=== PATIENT | female | born 1950 | race Two or more races ===

== ENCOUNTER → 2016-12-26 | Outpatient (CLI) | payer MEDICARE, MEDICAID ==
[~2016-12-26] MED LIST: ASPI81CH43 PO; Atorvastatin Calcium PO; LOSA50TA26; MET25T PO
== END | disposition home or self-care (01) ==
LOC: Rad HDHVI 09:55
PROVIDERS: ATTEND Internal Medicine Cardiovascular Disease
DX: Z01.810 Encounter for preprocedural cardiovascular examination (principal); I08.3 Combined rheumatic disorders of mitral, aortic and tricuspid valves; I34.0 Nonrheumatic mitral (valve) insufficiency; I31.3 Pericardial effusion (noninflammatory); I25.10 Atherosclerotic heart disease of native coronary artery without angina pectoris; I10 Essential (primary) hypertension; E78.5 Hyperlipidemia, unspecified
CPT/HCPCS: 93306

== ENCOUNTER → 2017-01-15 | Outpatient (CLI) | payer MEDICARE, MEDICAID ==
[~2017-01-15] MED LIST changes: +ADENOSINE 62 MG in GIVE UN-DILUTED 0 ML IV ONE; +ADENOSINE 90 MG/30 ML INJ IV ONE
[2017-01-15 16:49] LABS: Basophils # (auto) 0 uL; Basophils % (auto) 0.5 % (0.0-2.0); Eosinophils # (auto) 0.1 uL; Eosinophils % (auto) 2.5 % (0.0-7.0); Hemoglobin 15.5 g/dL (12.2-16.2); Lymphocytes # (auto) 2.2 uL; Lymphocytes % (auto) 36.5 % (10.0-50.0); Mean Corpuscular Hemoglobin 32.8 pg (28.0-32.0); Mean Corpuscular Hgb Conc. 33.7 g/dL (32.0-36.0); Mean Corpuscular Volume 97.3 fL (80.0-100.0); Mean Platelet Volume 9.5 fL (7.4-10.4); Monocytes # (auto) 0.6 uL; Monocytes % (auto) 10.5 % (0.0-12.0); Platelet Count (auto) 198 10^3/uL (140-450); Red Cell Distribution Width 13.5 % (11.6-16.0)
[2017-01-15 17:29] LABS: Albumin 3.8 g/dL (3.4-5.0); BUN/Creatinine Ratio 26.9; Bilirubin, Direct 0.2 mg/dL (0-0.2); Bilirubin, Total 0.5 mg/dL (0.2-1.0); Calcium 8.9 mg/dL (8.5-10.1); Potassium 3.4 mmol/L (3.5-5.1); Total Protein 7.5 g/dL (6.4-8.2)
== END | disposition home or self-care (01) ==
LOC: Rad HDHVI 13:36
PROVIDERS: ATTEND Internal Medicine Cardiovascular Disease
DX: I10 Essential (primary) hypertension (principal); E78.00 Pure hypercholesterolemia, unspecified; K74.1 Hepatic sclerosis; E11.9 Type 2 diabetes mellitus without complications; E03.9 Hypothyroidism, unspecified; D64.9 Anemia, unspecified; E55.9 Vitamin D deficiency, unspecified
CPT/HCPCS: 78452; 80048; 80061; 80076; 82306; 83036; 84443; 93005; 96374; 96375; J0153

== ENCOUNTER → 2017-01-26 | Outpatient (CLI) | payer MEDICARE, MEDICAID ==
[~2017-01-26] MED LIST changes: -ADENOSINE 62 MG in GIVE UN-DILUTED 0 ML IV ONE; -ADENOSINE 90 MG/30 ML INJ IV ONE
== END | disposition home or self-care (01) ==
LOC: Rad HDHVI 08:47
PROVIDERS: ATTEND Internal Medicine Cardiovascular Disease
CPT/HCPCS: 71020

== ENCOUNTER → 2017-02-16 | Outpatient (CLI) | payer MEDICARE, MEDICAID ==
[~2017-02-16] VITALS: Ht 152.4 cm; Wt 72.6 kg
[~2017-02-16] MED LIST changes: +CLON0.1T PO; +GUAI1SOL3 PO; +HCTZ25T PO; +LISI-646 PO; +ROSU20TA14 PO
[2017-02-16 08:00] VITALS: BP 156/84
[2017-02-16 08:30] VITALS: BP 145/89
[2017-02-16 12:32] LABS: Basophils # (auto) 0 uL; Basophils % (auto) 0.5 % (0.0-2.0); Eosinophils # (auto) 0.1 uL; Eosinophils % (auto) 2.6 % (0.0-7.0); Hematocrit 46.8 % (36.0-46.0); Hemoglobin 15.9 g/dL (12.2-16.2); Lymphocytes # (auto) 1.7 uL; Lymphocytes % (auto) 29.8 % (10.0-50.0); Mean Corpuscular Hemoglobin 33.5 pg (28.0-32.0); Mean Corpuscular Volume 98.3 fL (80.0-100.0); Mean Platelet Volume 9.3 fL (7.4-10.4); Monocytes # (auto) 0.5 uL; Monocytes % (auto) 9.8 % (0.0-12.0); Neutrophils # (auto) 3.2 uL; Neutrophils % (auto) 57.3 % (37.0-80.0); Platelet Count (auto) 220 10^3/uL (140-450); Red Cell Distribution Width 13.4 % (11.6-16.0); White Blood Cell 5.6 10^3/uL (4.4-10.8)
[2017-02-16 12:42] LABS: INR 0.98 (0.9-1.15); Partial Thromboplastin Time 25.9 sec (22.64-33.71); Prothrombin Time 10.7 sec (9.37-12.3)
[2017-02-16 12:53] LABS: BUN/Creatinine Ratio 28.3; Calcium 9.2 mg/dL (8.5-10.1); Potassium 3.4 mmol/L (3.5-5.1)
== END | disposition home or self-care (01) ==
LOC: Rad HDHVI 07:42
PROVIDERS: ATTEND Internal Medicine Cardiovascular Disease
DX: I10 Essential (primary) hypertension (principal); D64.9 Anemia, unspecified; R79.1 Abnormal coagulation profile; Z01.812 Encounter for preprocedural laboratory examination
CPT/HCPCS: 36415; 71020; 80048; 85025; 85610; 85730; 93005; G0463

== ENCOUNTER → 2017-02-20 | Day surgery (SDC) | payer MEDICARE, MEDICAID ==
[~2017-02-20] MED LIST changes: +ANGIOMAX 250 MG VIAL IV ONE; +IOHEXOL 350 MG/ML 100ML IJ ONE; +LIDOCAINE 2%HCL (LOCAL ANESTH.) INJ 20ML MDV ONE; -LOSA50TA26; -MET25T PO; +MIDAZOLAM HCL 1MG/1ML-2 ML VIAL ONE; +SODIUM CHL 0.9% 0 ML ONE; +fentaNYL CITRATE 100 MCG/2 ML VL ONE
== END | disposition home or self-care (01) ==
LOC: CATH 09:49
PROVIDERS: ATTEND Internal Medicine Cardiovascular Disease
DX: R94.39 Abnormal result of other cardiovascular function study (principal); I10 Essential (primary) hypertension; E78.5 Hyperlipidemia, unspecified
CPT/HCPCS: 93458; C1760; C1894; J1644; J2250; J3010; J7030; Q9967; 99152

== ENCOUNTER → 2017-07-11 | Outpatient (CLI) | payer MEDICARE, MEDICAID ==
[~2017-07-11] MED LIST changes: -ANGIOMAX 250 MG VIAL IV ONE; -ASPI81CH43 PO; -Atorvastatin Calcium PO; -HCTZ25T PO; -IOHEXOL 350 MG/ML 100ML IJ ONE; -LIDOCAINE 2%HCL (LOCAL ANESTH.) INJ 20ML MDV ONE; -LISI-646 PO; -MIDAZOLAM HCL 1MG/1ML-2 ML VIAL ONE; -ROSU20TA14 PO; -SODIUM CHL 0.9% 0 ML ONE; -fentaNYL CITRATE 100 MCG/2 ML VL ONE
== END | disposition home or self-care (01) ==
LOC: Rad HDHVI 10:08
PROVIDERS: ATTEND Internal Medicine Cardiovascular Disease
DX: I10 Essential (primary) hypertension (principal); E78.5 Hyperlipidemia, unspecified
CPT/HCPCS: 93306

== ENCOUNTER → 2017-07-27 | Outpatient (CLI) | payer MEDICARE, MEDICAID ==
[~2017-07-27] VITALS: Ht 30.5 cm; Wt 0.5 kg
[~2017-07-27] MED LIST changes: +ADENOSINE 60 MG in GIVE UN-DILUTED 0 ML IV ONE; +ADENOSINE 90 MG/30 ML INJ IV ONE; +READI-CAT 2 (BARIUM SULF)(VANILLA SMOOTHIE) 450ML ONE
== END | disposition home or self-care (01) ==
LOC: Rad HDHVI 10:10
PROVIDERS: ATTEND Internal Medicine Cardiovascular Disease
DX: K57.30 Diverticulosis of large intestine without perforation or abscess without bleeding (principal); I70.0 Atherosclerosis of aorta; E78.00 Pure hypercholesterolemia, unspecified; I10 Essential (primary) hypertension
CPT/HCPCS: 74176; 78452; 93005; 96374; 96375; A9500; J0153

== ENCOUNTER → 2017-11-01 | Outpatient (CLI) | payer MEDICARE, MEDICAID ==
[~2017-11-01] MED LIST changes: -ADENOSINE 60 MG in GIVE UN-DILUTED 0 ML IV ONE; -ADENOSINE 90 MG/30 ML INJ IV ONE; +IOHEXOL 350 MG/ML 100ML IJ ONE; -READI-CAT 2 (BARIUM SULF)(VANILLA SMOOTHIE) 450ML ONE
[2017-11-01 13:05] VITALS: BP 128/81
[2017-11-01 13:45] VITALS: BP 135/80
== END | disposition home or self-care (01) ==
LOC: Rad HDHVI 12:49
PROVIDERS: ATTEND Internal Medicine Cardiovascular Disease
DX: I25.10 Atherosclerotic heart disease of native coronary artery without angina pectoris (principal); M54.2 Cervicalgia
CPT/HCPCS: 70491; 71260; 82565; 96374; G0463; Q9967

== ENCOUNTER → 2018-02-21 | Outpatient (CLI) | payer MEDICARE, MEDICAID ==
[~2018-02-21] MED LIST changes: +ASPirin 81 mg TAB ONE; +ASPirin 81 mg TAB PO ONE; -IOHEXOL 350 MG/ML 100ML IJ ONE; +cloNIDine HCL 0.1 MG TAB ONE; +cloNIDine HCL 0.1 MG TAB PO ONE
[2018-02-21 10:45] VITALS: BP 118/68
[2018-02-21 11:50] VITALS: BP 118/68
[2018-02-21 16:07] LABS: Basophils # (auto) 0 uL; Basophils % (auto) 0.5 % (0.0-2.0); Eosinophils # (auto) 0 uL; Eosinophils % (auto) 0.7 % (0.0-7.0); Hematocrit 43.9 % (36.0-46.0); Hemoglobin 14.9 g/dL (12.2-16.2); Lymphocytes # (auto) 1.3 uL; Lymphocytes % (auto) 23.7 % (10.0-50.0); Mean Corpuscular Hemoglobin 33.8 pg (28.0-32.0); Mean Corpuscular Volume 99.6 fL (80.0-100.0); Monocytes # (auto) 0.6 uL; Monocytes % (auto) 10.5 % (0.0-12.0); Neutrophils # (auto) 3.6 uL; Neutrophils % (auto) 64.6 % (37.0-80.0); Nucleated Red Blood Cells % 0.3 %; Platelet Count (auto) 162 10^3/uL (140-450); Red Blood Cells 4.41 10^6/uL (4.0-5.20); White Blood Cell 5.5 10^3/uL (4.4-10.8)
[2018-02-21 16:44] LABS: Albumin 3.3 g/dL (3.4-5.0); BUN/Creatinine Ratio 30.5; Bilirubin, Total 0.4 mg/dL (0.2-1.0); Calcium 8.6 mg/dL (8.5-10.1); Potassium 3.8 mmol/L (3.5-5.1); Total Protein 6.7 g/dL (6.4-8.2)
== END | disposition home or self-care (01) ==
LOC: CHF HDHVI 10:42
PROVIDERS: ATTEND Internal Medicine Cardiovascular Disease
DX: D64.9 Anemia, unspecified (principal); I10 Essential (primary) hypertension; E83.40 Disorders of magnesium metabolism, unspecified
CPT/HCPCS: 36415; 80053; 83735; 85025; 93005; G0463

== ENCOUNTER → 2018-12-23 | Outpatient (CLI) | payer MEDICARE, MEDICAID ==
[~2018-12-23] MED LIST changes: -ASPirin 81 mg TAB ONE; -ASPirin 81 mg TAB PO ONE
[2018-12-23 16:50] VITALS: BP 183/99
[2018-12-23 17:10] VITALS: BP 167/94
--- NOTE | 2018-12-23 17:10 | NUR ---
IN TO CLINIC FOR HTN. MEDICATED PER MD ORDER. BP MONITORED. GOOD RESPONSE WITHIN 30 MINUTES. DISCHARGED TO CARE OF SON WITHOUT DISTRESS. MEDICATION ADMINISTRATION CLONIDINE 0.2 MG PO 3818
== END | disposition home or self-care (01) ==
LOC: CHF HDHVI 16:38
PROVIDERS: ATTEND Internal Medicine Cardiovascular Disease
DX: I10 Essential (primary) hypertension (principal)
CPT/HCPCS: G0463

== ENCOUNTER → 2019-01-07 | Outpatient (CLI) | payer MEDICAID, MEDICARE ==
[~2019-01-07] MED LIST changes: -cloNIDine HCL 0.1 MG TAB ONE; -cloNIDine HCL 0.1 MG TAB PO ONE
== END | disposition home or self-care (01) ==
LOC: Rad HDHVI 15:06
PROVIDERS: ATTEND Internal Medicine
DX: I11.9 Hypertensive heart disease without heart failure (principal); R42 Dizziness and giddiness
CPT/HCPCS: 93306; 93880

== ENCOUNTER → 2019-01-21 | Outpatient (CLI) | payer MEDICARE ==
[~2019-01-21] VITALS: Ht 165.1 cm; Wt 75.3 kg
[~2019-01-21] MED LIST changes: +ADENOSINE 63 MG in GIVE UN-DILUTED 0 ML IV ONE; +ADENOSINE 90 MG/30 ML INJ IV ONE
[2019-01-21 15:57] LABS: Basophils # (auto) 0 uL; Basophils % (auto) 0.5 % (0.0-2.0); Eosinophils # (auto) 0 uL; Eosinophils % (auto) 0.8 % (0.0-7.0); Hemoglobin 16.6 g/dL (12.2-16.2); Lymphocytes # (auto) 1.9 uL; Lymphocytes % (auto) 35.8 % (10.0-50.0); Mean Corpuscular Hemoglobin 32.6 pg (28.0-32.0); Mean Corpuscular Hgb Conc. 33.9 g/dL (32.0-36.0); Mean Corpuscular Volume 96.3 fL (80.0-100.0); Monocytes # (auto) 0.6 uL; Monocytes % (auto) 11.5 % (0.0-12.0); Neutrophils # (auto) 2.7 uL; Neutrophils % (auto) 51.4 % (37.0-80.0); Nucleated Red Blood Cells % 1.7 %; Platelet Count (auto) 193 10^3/uL (140-450); Red Blood Cells 5.09 10^6/uL (4.0-5.20); Red Cell Distribution Width 12.9 % (11.8-14.3); White Blood Cell 5.2 10^3/uL (4.4-10.8)
[2019-01-21 16:11] LABS: Potassium 3.7 mmol/L (3.5-5.1)
[2019-01-21 16:12] LABS: Urine Blood 1+ /uL (Negative); Urine Specific Gravity 1.017 (1.001-1.035)
[2019-01-21 16:17] LABS: BUN/Creatinine Ratio 22.4; Bilirubin, Total 0.6 mg/dL (0.2-1.0); Calcium 9.2 mg/dL (8.5-10.1); Total Protein 7.7 g/dL (6.4-8.2)
[2019-01-21 16:26] LABS: Free T4 (Free Thyroxine) 1.07 ng/dL (0.89-1.76)
== END | disposition home or self-care (01) ==
LOC: Rad HDHVI 08:58
PROVIDERS: ATTEND Internal Medicine
DX: N39.0 Urinary tract infection, site not specified (principal); E03.9 Hypothyroidism, unspecified; E55.9 Vitamin D deficiency, unspecified; D51.9 Vitamin B12 deficiency anemia, unspecified; J32.9 Chronic sinusitis, unspecified; R63.8 Other symptoms and signs concerning food and fluid intake; R09.89 Other specified symptoms and signs involving the circulatory and respiratory systems; R53.1 Weakness; R42 Dizziness and giddiness; Z79.899 Other long term (current) drug therapy
CPT/HCPCS: 36415; 78452; 80053; 80061; 81003; 82306; 82607; 83036; 84439; 84443; 85025; 87086; 93005; 96374; 96375; A9500; J0153

== ENCOUNTER → 2020-05-24 | Outpatient (CLI) | payer MEDICARE, MEDICAID ==
[~2020-05-24] MED LIST changes: -ADENOSINE 63 MG in GIVE UN-DILUTED 0 ML IV ONE; -ADENOSINE 90 MG/30 ML INJ IV ONE; +AML5T PO; +ATOR40TA52 PO; +CHOL1TAB22 PO; -CLON0.1T PO; +CLON0.1T14 PO; -GUAI1SOL3 PO; +PANT40TA2 PO
[2020-05-24 12:24] LABS: Basophils # (auto) 0 10 ^3/uL (0-0.2); Basophils % (auto) 0.5 % (0.0-2.0); Eosinophils # (auto) 0 10 ^3/uL (0-0.8); Eosinophils % (auto) 0.7 % (0.0-7.0); Hematocrit 46.6 % (36.0-46.0); Hemoglobin 15.5 g/dL (12.2-16.2); Lymphocytes # (auto) 1.9 10 ^3/uL (0.4-5.4); Lymphocytes % (auto) 34.9 % (10.0-50.0); Mean Corpuscular Hemoglobin 31.8 pg (28.0-32.0); Mean Corpuscular Hgb Conc. 33.3 g/dL (32.0-36.0); Mean Corpuscular Volume 95.5 fL (80.0-100.0); Monocytes # (auto) 0.5 10 ^3/uL (0-1.3); Monocytes % (auto) 9.8 % (0.0-12.0); Neutrophils % (auto) 54.1 % (37.0-80.0); Platelet Count (auto) 214 10^3/uL (140-450); Red Blood Cells 4.89 10^6/uL (4.0-5.20); White Blood Cell 5.5 10^3/uL (4.4-10.8)
[2020-05-24 12:31] LABS: Urine Blood 1+ /uL (Negative); Urine Specific Gravity 1.015 (1.001-1.035)
[2020-05-24 12:45] LABS: Albumin 3.8 g/dL (3.4-5.0); Calcium 9.1 mg/dL (8.5-10.1); Potassium 3.7 mmol/L (3.5-5.1)
[2020-05-24 12:52] LABS: BUN/Creatinine Ratio 28.4; Bilirubin, Total 0.5 mg/dL (0.2-1.0); Total Protein 7.8 g/dL (6.4-8.2)
[2020-05-24 12:54] LABS: Free T4 (Free Thyroxine) 1.12 ng/dL (0.89-1.76)
== END | disposition home or self-care (01) ==
LOC: LAB 08:36
PROVIDERS: ATTEND Internal Medicine
DX: E03.9 Hypothyroidism, unspecified (principal); K90.9 Intestinal malabsorption, unspecified; N39.0 Urinary tract infection, site not specified; D51.9 Vitamin B12 deficiency anemia, unspecified; Z79.899 Other long term (current) drug therapy; Z00.00 Encounter for general adult medical examination without abnormal findings
CPT/HCPCS: 36415; 80053; 80061; 81003; 82306; 82607; 83036; 84439; 84443; 85025; 87086

== ENCOUNTER → 2020-06-10 | Outpatient (CLI) | payer MEDICARE, MEDICAID | END | disposition home or self-care (01) | LOC: Rad HDHVI 12:58 | PROVIDERS: ATTEND Internal Medicine | DX: E03.9 Hypothyroidism, unspecified (principal) ==

== ENCOUNTER → 2021-01-18 | Outpatient (CLI) | payer MEDICARE, MEDICAID ==
[2021-01-18 11:39] LABS: Urine Blood TRACE /uL (Negative)
[2021-01-18 11:55] LABS: Basophils # (auto) 0 10 ^3/uL (0-0.2); Basophils % (auto) 0.6 % (0.0-2.0); Eosinophils # (auto) 0.2 10 ^3/uL (0-0.8); Eosinophils % (auto) 2.4 % (0.0-7.0); Hematocrit 46.7 % (36.0-46.0); Hemoglobin 16.4 g/dL (12.2-16.2); Lymphocytes # (auto) 2.2 10 ^3/uL (0.4-5.4); Lymphocytes % (auto) 32.1 % (10.0-50.0); Mean Corpuscular Hemoglobin 33.6 pg (28.0-32.0); Mean Corpuscular Hgb Conc. 35.1 g/dL (32.0-36.0); Mean Corpuscular Volume 95.9 fL (80.0-100.0); Monocytes # (auto) 0.7 10 ^3/uL (0-1.3); Monocytes % (auto) 10.4 % (0.0-12.0); Neutrophils # (auto) 3.7 10 ^3/uL (1.6-8.6); Neutrophils % (auto) 54.5 % (37.0-80.0); Nucleated Red Blood Cells % 0.2 %; Platelet Count (auto) 187 10^3/uL (140-450); Red Blood Cells 4.87 10^6/uL (4.0-5.20); Red Cell Distribution Width 13.5 % (11.8-14.3); White Blood Cell 6.7 10^3/uL (4.4-10.8)
[2021-01-18 12:26] LABS: Albumin 3.8 g/dL (3.4-5.0); Calcium 9.1 mg/dL (8.5-10.1); Potassium 3.3 mmol/L (3.5-5.1)
[2021-01-18 12:27] LABS: Free T4 (Free Thyroxine) 1.23 ng/dL (0.89-1.76)
[2021-01-18 12:31] LABS: BUN/Creatinine Ratio 20.4; Bilirubin, Total 0.6 mg/dL (0.2-1.0); Total Protein 7.9 g/dL (6.4-8.2)
== END | disposition home or self-care (01) ==
LOC: LAB 08:06
PROVIDERS: ATTEND Internal Medicine
DX: D51.3 Other dietary vitamin B12 deficiency anemia (principal); I10 Essential (primary) hypertension; E11.9 Type 2 diabetes mellitus without complications; E55.9 Vitamin D deficiency, unspecified; D64.9 Anemia, unspecified; R00.2 Palpitations; R53.1 Weakness; R30.0 Dysuria
CPT/HCPCS: 36415; 80053; 80061; 81003; 82306; 82607; 83036; 84439; 84443; 85025

== ENCOUNTER → 2021-02-22 | Outpatient (CLI) | payer MEDICARE, MEDICAID ==
[~2021-02-22] VITALS: Ht 157.5 cm; Wt 72.1 kg
[~2021-02-22] MED LIST changes: +ADENOSINE 61 MG in GIVE UN-DILUTED 0 ML IV ONE; +ADENOSINE 90 MG/30 ML INJ IV ONE
== END | disposition home or self-care (01) ==
LOC: Rad HDHVI 09:08
PROVIDERS: ATTEND Internal Medicine
DX: I10 Essential (primary) hypertension (principal); I20.9 Angina pectoris, unspecified; E78.5 Hyperlipidemia, unspecified; R42 Dizziness and giddiness; R07.9 Chest pain, unspecified; Z82.49 Family history of ischemic heart disease and other diseases of the circulatory system
CPT/HCPCS: 78452; 93005; 96374; 96375; A9500; J0153

== ENCOUNTER → 2021-04-12 | Outpatient (CLI) | payer MEDICARE, MEDICAID ==
[~2021-04-12] MED LIST changes: -ADENOSINE 61 MG in GIVE UN-DILUTED 0 ML IV ONE; -ADENOSINE 90 MG/30 ML INJ IV ONE
[2021-04-12 10:23] VITALS: BP 143/84
[2021-04-12 10:37] VITALS: BP 133/82
[2021-04-12 15:35] LABS: BUN/Creatinine Ratio 29.6; Calcium 9.1 mg/dL (8.5-10.1); Potassium 3.7 mmol/L (3.5-5.1)
[2021-04-12 15:40] LABS: Basophils # (auto) 0.1 10 ^3/uL (0-0.2); Basophils % (auto) 0.7 % (0.0-2.0); Eosinophils # (auto) 0 10 ^3/uL (0-0.8); Eosinophils % (auto) 0.4 % (0.0-7.0); Hematocrit 46.8 % (36.0-46.0); Lymphocytes # (auto) 2.8 10 ^3/uL (0.4-5.4); Lymphocytes % (auto) 29.3 % (10.0-50.0); Mean Corpuscular Hgb Conc. 34.1 g/dL (32.0-36.0); Mean Corpuscular Volume 96.6 fL (80.0-100.0); Monocytes # (auto) 0.7 10 ^3/uL (0-1.3); Monocytes % (auto) 7.7 % (0.0-12.0); Neutrophils # (auto) 5.8 10 ^3/uL (1.6-8.6); Neutrophils % (auto) 61.9 % (37.0-80.0); Nucleated Red Blood Cells % 0.1 %; Red Blood Cells 4.85 10^6/uL (4.0-5.20); Red Cell Distribution Width 13.4 % (11.8-14.3); White Blood Cell 9.4 10^3/uL (4.4-10.8)
[2021-04-12 15:46] LABS: INR 0.98 (0.9-1.15); Partial Thromboplastin Time 25.2 sec (23.0-31.2)
== END | disposition home or self-care (01) ==
LOC: Rad HDHVI 10:02
PROVIDERS: ATTEND Internal Medicine
DX: Z01.818 Encounter for other preprocedural examination (principal); M19.011 Primary osteoarthritis, right shoulder; I70.0 Atherosclerosis of aorta; M77.8 Other enthesopathies, not elsewhere classified; I10 Essential (primary) hypertension; R07.9 Chest pain, unspecified; R42 Dizziness and giddiness; M25.511 Pain in right shoulder
CPT/HCPCS: 36415; 71046; 73030; 80048; 85025; 85610; 85730; 93005; G0463

== ENCOUNTER 2021-04-13 07:31 | Day surgery (SDC) | payer MEDICARE, MEDICAID ==
[~2021-04-13] VITALS: Ht 134.6 cm; Wt 73.0 kg
[~2021-04-13 07:31] MED LIST changes: -CHOL1TAB22 PO; -PANT40TA2 PO
[2021-04-13] MEDS ORDERED: ANGIOMAX 250 MG VIAL IV ONE (07:59)
[2021-04-13] MEDS ORDERED: VERAPAMIL 2.5MG/ML INJ 2ML VIAL IV ONE (07:59)
[2021-04-13] MEDS ORDERED: HEPARIN SODIUM (PORCINE) 5000 UNITS/ML 1ML VIAL ONE (07:59)
[2021-04-13] MEDS ORDERED: SODIUM CHL 0.9% 0 ML ONE (08:00)
[2021-04-13] MEDS ORDERED: fentaNYL CITRATE 100 MCG/2 ML VL ONE (08:00)
[2021-04-13] MEDS ORDERED: MIDAZOLAM HCL 1MG/1ML-2 ML VIAL ONE (08:00)
[2021-04-13] MEDS ORDERED: HYDROcodone-ACET 5/325MG TAB PO PRN (10:30)
[2021-04-13] MEDS ORDERED: ONDANSETRON HCL 4 MG/2 ML VIAL IV PRN (10:30)
[2021-04-13] MEDS ORDERED: ACETAMINOPHEN 500 MG TAB PO PRN (10:30)
== END 2021-04-13 12:05 | disposition home or self-care (01) ==
LOC: CATH 07:31
PROVIDERS: ATTEND Internal Medicine
DX: R94.39 Abnormal result of other cardiovascular function study (principal); I10 Essential (primary) hypertension; E78.5 Hyperlipidemia, unspecified; I73.9 Peripheral vascular disease, unspecified; E78.00 Pure hypercholesterolemia, unspecified; E66.01 Morbid (severe) obesity due to excess calories; Z88.8 Allergy status to other drugs, medicaments and biological substances; Z90.710 Acquired absence of both cervix and uterus; Z20.822 Contact with and (suspected) exposure to COVID-19; Z79.899 Other long term (current) drug therapy
CPT/HCPCS: 93458; C1887; C1894; J1644; J2250; J3010; U0003; 99152

== ENCOUNTER 2022-02-12 08:02 | Emergency (ER) | payer MEDICARE, MEDICAID ==
[~2022-02-12] VITALS: Ht 152.4 cm; Wt 75.7 kg
[2022-02-12 09:31] LABS: Urine Bacteria NONE SEEN /hpf (None Seen); Urine Blood Negative /uL (Negative); Urine Specific Gravity 1.014 (1.001-1.035); Urine WBC 3 /hpf (0 - 5)
[2022-02-12] MEDS ORDERED: KETOROLAC TROMETH 30 MG/ML 1ML VIAL IV ONE (10:45)
[2022-02-12] MEDS ORDERED: SODIUM CHLORIDE 0.9% 500 ML IVB ONE (10:45)
[2022-02-12 12:22] VITALS: BP 186/89
[2022-02-12 12:33] LABS: Basophils # (auto) 0 10 ^3/uL (0-0.2); Basophils % (auto) 0.6 % (0.0-2.0); Eosinophils # (auto) 0.1 10 ^3/uL (0-0.8); Eosinophils % (auto) 1.6 % (0.0-7.0); Hemoglobin 13.5 g/dL (12.2-16.2); Lymphocytes # (auto) 2.4 10 ^3/uL (0.4-5.4); Lymphocytes % (auto) 34.1 % (10.0-50.0); Mean Corpuscular Hemoglobin 33.2 pg (28.0-32.0); Mean Corpuscular Hgb Conc. 34.5 g/dL (32.0-36.0); Mean Corpuscular Volume 96.3 fL (80.0-100.0); Monocytes # (auto) 0.8 10 ^3/uL (0-1.3); Neutrophils # (auto) 3.7 10 ^3/uL (1.6-8.6); Neutrophils % (auto) 52.7 % (37.0-80.0); Nucleated Red Blood Cells % 0.1 %; Red Blood Cells 4.05 10^6/uL (4.0-5.20); Red Cell Distribution Width 13.2 % (11.8-14.3); White Blood Cell 6.9 10^3/uL (4.4-10.8)
[2022-02-12] MEDS ORDERED: MORPHINE SULFATE INJ 2 MG/ml SYRG IV PRN ×2 (12:45)
[2022-02-12] MEDS ORDERED: SODIUM CHLORIDE 0.9% 1,000 ML IV SCH (12:45)
[2022-02-12] MEDS ORDERED: NITROGLYCERIN 0.4 MG SL TAB SL PRN (12:45)
[2022-02-12] MEDS ORDERED: cefTRIAXone 1GM/50ML D5W 50 ML IV ONE (12:45)
[2022-02-12] MEDS ORDERED: ONDANSETRON HCL 4 MG/2 ML VIAL IV PRN (12:45)
[2022-02-12] MEDS ORDERED: FAMOTIDINE (10MG/ML) 2ML VL IV ONE (12:45)
[2022-02-12] MEDS ORDERED: hydrALAZINE HCL 20 MG/ML VL IV PRN (12:45)
[2022-02-12 12:56] LABS: Amylase 92 U/L (25-115); Lipase 142 U/L (73-393); Potassium 3.7 mmol/L (3.5-5.1)
[2022-02-12 13:02] LABS: BUN/Creatinine Ratio 35.7; Bilirubin, Total 0.3 mg/dL (0.2-1.0); Calcium 8.2 mg/dL (8.5-10.1); Total Protein 6.6 g/dL (6.4-8.2)
[2022-02-13] MEDS ORDERED: cefTRIAXone 1GM/50ML D5W 50 ML IV SCH (09:00)
[2022-02-13] MEDS ORDERED: FAMOTIDINE (10MG/ML) 2ML VL IV SCH (10:00)
== END 2022-02-12 13:44 | disposition home or self-care (01) ==
LOC: ER 08:02 → OVERFLOW 12:48 → UNDOADMIN 12:48 → UNDODISIN 13:42 → OVERFLOW 13:44
DX: R10.9 Unspecified abdominal pain (principal); I10 Essential (primary) hypertension; Z86.73 Personal history of transient ischemic attack (TIA), and cerebral infarction without residual deficits; Z88.8 Allergy status to other drugs, medicaments and biological substances
CPT/HCPCS: 36415; 74176; 80053; 81001; 82150; 83690; 85025; 93005; 96374; 99285; J1885; J7040; 96361; G0378

== ENCOUNTER → 2022-03-28 | Outpatient (CLI) | payer MEDICARE, MEDICAID | END | disposition home or self-care (01) | LOC: LAB 11:22 | PROVIDERS: ATTEND Internal Medicine | DX: R94.4 Abnormal results of kidney function studies (principal) | CPT/HCPCS: 36415; 82565; 84520 ==

== ENCOUNTER → 2022-03-31 | Outpatient (CLI) | payer MEDICARE, MEDICAID ==
[~2022-03-31] MED LIST changes: +IOHEXOL 350 MG/ML 100ML IJ ONE
[2022-03-31 09:04] VITALS: BP 159/87
[2022-03-31 09:28] VITALS: BP 167/77
== END | disposition home or self-care (01) ==
LOC: Rad HDHVI 08:47
PROVIDERS: ATTEND Internal Medicine
DX: I51.7 Cardiomegaly (principal); N32.89 Other specified disorders of bladder; I70.0 Atherosclerosis of aorta; R07.89 Other chest pain
CPT/HCPCS: 71260; 74177; G0463; Q9967

== ENCOUNTER → 2022-05-09 | Outpatient (CLI) | payer MEDICARE, MEDICAID ==
[~2022-05-09] MED LIST changes: -IOHEXOL 350 MG/ML 100ML IJ ONE
[2022-05-09 16:29] LABS: Urine Blood Negative /uL (Negative)
[2022-05-09 16:43] LABS: Basophils # (auto) 0 10 ^3/uL (0-0.2); Basophils % (auto) 0.3 % (0.0-2.0); Eosinophils # (auto) 0.1 10 ^3/uL (0-0.8); Eosinophils % (auto) 1.3 % (0.0-7.0); Hematocrit 44.3 % (36.0-46.0); Hemoglobin 14.2 g/dL (12.2-16.2); Lymphocytes # (auto) 2.5 10 ^3/uL (0.4-5.4); Lymphocytes % (auto) 37.9 % (10.0-50.0); Mean Corpuscular Hemoglobin 31.2 pg (28.0-32.0); Mean Corpuscular Volume 97.3 fL (80.0-100.0); Monocytes # (auto) 0.6 10 ^3/uL (0-1.3); Monocytes % (auto) 9.1 % (0.0-12.0); Neutrophils # (auto) 3.4 10 ^3/uL (1.6-8.6); Neutrophils % (auto) 51.4 % (37.0-80.0); Nucleated Red Blood Cells % 0.1 %; Red Blood Cells 4.55 10^6/uL (4.0-5.20); Red Cell Distribution Width 13.4 % (11.8-14.3); White Blood Cell 6.6 10^3/uL (4.4-10.8)
[2022-05-09 16:54] LABS: Albumin 3.4 g/dL (3.4-5.0); Calcium 9.8 mg/dL (8.5-10.1); Potassium 3.8 mmol/L (3.5-5.1)
[2022-05-09 17:00] LABS: Bilirubin, Total 0.4 mg/dL (0.2-1.0); Total Protein 7.8 g/dL (6.4-8.2)
[2022-05-09 17:05] LABS: Free T4 (Free Thyroxine) 1.25 ng/dL (0.89-1.76)
== END | disposition home or self-care (01) ==
LOC: LAB 11:21
PROVIDERS: ATTEND Internal Medicine
DX: D64.9 Anemia, unspecified (principal); E11.9 Type 2 diabetes mellitus without complications; E55.9 Vitamin D deficiency, unspecified; I10 Essential (primary) hypertension; R00.2 Palpitations; R53.1 Weakness; R30.0 Dysuria; D51.3 Other dietary vitamin B12 deficiency anemia
CPT/HCPCS: 36415; 80053; 80061; 81003; 82607; 83036; 84439; 84443; 85025; 87086

== ENCOUNTER → 2022-05-11 | Outpatient (CLI) | payer MEDICARE, MEDICAID | END | disposition home or self-care (01) | LOC: Rad HDHVI 14:09 | PROVIDERS: ATTEND Internal Medicine | DX: I37.1 Nonrheumatic pulmonary valve insufficiency (principal); R07.9 Chest pain, unspecified; E78.00 Pure hypercholesterolemia, unspecified | CPT/HCPCS: 93306 ==

== ENCOUNTER → 2022-11-08 | Outpatient (CLI) | payer MEDICARE, MEDICAID ==
[~2022-11-08] MED LIST changes: +PIPERACILLIN-TAZO 4.5GM 100 ML IV ONE; +READI-CAT 2 (BARIUM SULF)(VANILLA SMOOTHIE) 450ML ONE
[2022-11-08 10:00] VITALS: BP 168/100
[2022-11-08 12:40] VITALS: BP 161/90
== END | disposition home or self-care (01) ==
LOC: Rad HDHVI 10:00
PROVIDERS: ATTEND Internal Medicine Cardiovascular Disease
DX: J06.9 Acute upper respiratory infection, unspecified (principal); R10.0 Acute abdomen; I10 Essential (primary) hypertension; E78.00 Pure hypercholesterolemia, unspecified; E11.9 Type 2 diabetes mellitus without complications; Z86.73 Personal history of transient ischemic attack (TIA), and cerebral infarction without residual deficits; Z88.8 Allergy status to other drugs, medicaments and biological substances
CPT/HCPCS: 74176; 96365; 96366; G0463; J2543

== ENCOUNTER 2023-01-15 19:30 | Inpatient (IN) | payer MEDICARE, MEDICAID ==
[~2023-01-15] VITALS: Ht 152.4 cm; Wt 79.8 kg
[~2023-01-15 19:30] MED LIST changes: -PIPERACILLIN-TAZO 4.5GM 100 ML IV ONE; -READI-CAT 2 (BARIUM SULF)(VANILLA SMOOTHIE) 450ML ONE
[2023-01-15 21:52] LABS: Basophils # (auto) 0 10 ^3/uL (0-0.2); Basophils % (auto) 0.4 % (0.0-2.0); Eosinophils # (auto) 0.1 10 ^3/uL (0-0.8); Eosinophils % (auto) 1.3 % (0.0-7.0); Hematocrit 39.9 % (36.0-46.0); Hemoglobin 13.6 g/dL (12.2-16.2); Lymphocytes # (auto) 2.9 10 ^3/uL (0.4-5.4); Lymphocytes % (auto) 35.3 % (10.0-50.0); Mean Corpuscular Hgb Conc. 34.2 g/dL (32.0-36.0); Mean Corpuscular Volume 87.8 fL (80.0-100.0); Monocytes # (auto) 1.3 10 ^3/uL (0-1.3); Neutrophils # (auto) 3.8 10 ^3/uL (1.6-8.6); Nucleated Red Blood Cells % 0.2 %; Red Blood Cells 4.54 10^6/uL (4.0-5.20); Red Cell Distribution Width 14.3 % (11.8-14.3); White Blood Cell 8.2 10^3/uL (4.4-10.8)
[2023-01-15 22:15] LABS: Albumin 3.3 g/dL (3.4-5.0); BUN/Creatinine Ratio 18.2 (10.0-20.0); Calcium 8.9 mg/dL (8.5-10.1); Potassium 3.8 mmol/L (3.5-5.1)
[2023-01-15 22:17] LABS: Bilirubin, Total 0.2 mg/dL (0.2-1.0); Total Protein 7.4 g/dL (6.4-8.2)
[2023-01-15] MEDS ORDERED: IOHEXOL 350 MG/ML 100ML IJ ONE (23:12)
[2023-01-15] MEDS ORDERED: ASPirin 325 MG TAB PO ONE (23:15)
[2023-01-16 00:22] LABS: Urine WBC None Seen /hpf (0 - 5)
[2023-01-16 00:44] LABS: Urine Amorphous Crystal MANY /hpf (None Seen); Urine Bacteria NONE SEEN /hpf (None Seen); Urine Blood Negative /uL (Negative); Urine Mucus FEW (None Seen); Urine Specific Gravity 1.028 (1.001-1.035)
[2023-01-16] MEDS ORDERED: ONDANSETRON HCL 4 MG/2 ML VIAL IV PRN (07:15)
[2023-01-16] MEDS ORDERED: MORPHINE SULFATE INJ 2 MG/ml SYRG IV PRN (07:15)
[2023-01-16] MEDS ORDERED: NITROGLYCERIN 0.4 MG SL TAB SL PRN (07:15)
[2023-01-16] MEDS: ASPirin 81 mg TAB PO SCH (09:32)
[2023-01-16] MEDS: ENOXAPARIN SOD 40 MG/0.4 ML SYRINGE SC SCH (09:32)
[2023-01-16] MEDS: PANTOPRAZOLE 40 MG TAB PO SCH (09:32)
[2023-01-16] MEDS: METOPROLOL SUCCINATE XL 50 MG TAB PO SCH (09:33)
[2023-01-16] MEDS: cloNIDine HCL 0.1 MG TAB PO SCH ×2 (09:33→21:50)
[2023-01-16 21:39] VITALS: BP 153/78
[2023-01-16] MEDS ORDERED: HYOS0.1293 PO (21:42)
[2023-01-16] MEDS ORDERED: METO-289 PO (21:42)
[2023-01-16] MEDS ORDERED: PANT40T PO (21:42)
[2023-01-16] MEDS: ACETAMINOPHEN 325 MG TAB PO PRN (21:50)
[2023-01-16] MEDS: ATORVASTATIN 20 MG TAB PO SCH (21:50)
[2023-01-17] VITALS (7 sets, daily range): BP systolic 121–144; BP diastolic 62–77
[2023-01-17 06:44] LABS: BUN/Creatinine Ratio 18.1 (10.0-20.0); Calcium 8.8 mg/dL (8.5-10.1); Potassium 3.5 mmol/L (3.5-5.1)
[2023-01-17] MEDS: cloNIDine HCL 0.1 MG TAB PO SCH ×2 (09:41→21:09)
[2023-01-17] MEDS: PANTOPRAZOLE 40 MG TAB PO SCH (09:41)
[2023-01-17] MEDS: ASPirin 81 mg TAB PO SCH (09:41)
[2023-01-17] MEDS: ENOXAPARIN SOD 40 MG/0.4 ML SYRINGE SC SCH (09:41)
[2023-01-17] MEDS: METOPROLOL SUCCINATE XL 50 MG TAB PO SCH (09:41)
[2023-01-17] MEDS: ACETAMINOPHEN 325 MG TAB PO PRN ×2 (09:42→17:10)
[2023-01-17] MEDS: ATORVASTATIN 20 MG TAB PO SCH (21:09)
[2023-01-18 05:00] VITALS: BP 135/74
[2023-01-18 09:00] VITALS: BP 137/70
[2023-01-18] MEDS ORDERED: ADENOSINE 67 MG in GIVE UN-DILUTED 0 ML IV ONE (09:15)
[2023-01-18] MEDS: ASPirin 81 mg TAB PO SCH (11:13)
[2023-01-18] MEDS: cloNIDine HCL 0.1 MG TAB PO SCH (11:14)
[2023-01-18] MEDS: PANTOPRAZOLE 40 MG TAB PO SCH (11:15)
[2023-01-18] MEDS: ENOXAPARIN SOD 40 MG/0.4 ML SYRINGE SC SCH (11:16)
[2023-01-18] MEDS: METOPROLOL SUCCINATE XL 50 MG TAB PO SCH (11:16)
[2023-01-18 12:45] VITALS: BP 135/74
== END 2023-01-18 14:26 | disposition home or self-care (01) | DRG 313 ==
LOC: ER 19:30 → TELE 01-16 07:10 → TELE-WESTW 01-16 20:40
PROVIDERS: ADMIT Nurse Practitioner; ATTEND Internal Medicine
DX: R07.89 Other chest pain (principal); E44.0 Moderate protein-calorie malnutrition; R42 Dizziness and giddiness; E78.5 Hyperlipidemia, unspecified; I25.10 Atherosclerotic heart disease of native coronary artery without angina pectoris; I10 Essential (primary) hypertension; Z68.34 Body mass index [BMI] 34.0-34.9, adult; Z88.8 Allergy status to other drugs, medicaments and biological substances
CPT/HCPCS: 36415; 70450; 71045; 71260; 74177; 78452; 80048; 80053; 81001; 83880; 84484; 85025; 93005; 93017; G0378; J0153; J2405

== ENCOUNTER → 2023-01-29 | Outpatient (CLI) | payer MEDICARE, MEDICAID ==
[~2023-01-29] MED LIST changes: +HYOS0.1293 PO; +METO-289 PO; +PANT40T PO; +READI-CAT 2 (BARIUM SULF)(VANILLA SMOOTHIE) 450ML ONE
== END | disposition home or self-care (01) ==
LOC: Rad HDHVI 15:29
PROVIDERS: ATTEND Internal Medicine Cardiovascular Disease
DX: M48.061 Spinal stenosis, lumbar region without neurogenic claudication (principal); K57.30 Diverticulosis of large intestine without perforation or abscess without bleeding; M47.816 Spondylosis without myelopathy or radiculopathy, lumbar region; K76.0 Fatty (change of) liver, not elsewhere classified; K75.3 Granulomatous hepatitis, not elsewhere classified; N30.80 Other cystitis without hematuria; I25.10 Atherosclerotic heart disease of native coronary artery without angina pectoris; I70.0 Atherosclerosis of aorta; R10.9 Unspecified abdominal pain
CPT/HCPCS: 72100; 74176

== ENCOUNTER → 2023-02-01 | Outpatient (CLI) | payer MEDICARE, MEDICAID ==
[~2023-02-01] MED LIST changes: -READI-CAT 2 (BARIUM SULF)(VANILLA SMOOTHIE) 450ML ONE
== END | disposition home or self-care (01) ==
LOC: Rad HDHVI 14:59
PROVIDERS: ATTEND Internal Medicine Cardiovascular Disease
DX: I35.1 Nonrheumatic aortic (valve) insufficiency (principal); I11.9 Hypertensive heart disease without heart failure; R06.02 Shortness of breath
CPT/HCPCS: 93306

== ENCOUNTER → 2023-02-19 | Outpatient (CLI) | payer MEDICARE, MEDICAID ==
[~2023-02-19] VITALS: Ht 157.5 cm; Wt 74.8 kg
[~2023-02-19] MED LIST changes: +ADENOSINE 63 MG in GIVE UN-DILUTED 0 ML IV ONE; +ADENOSINE 90 MG/30 ML INJ IV ONE
== END | disposition home or self-care (01) ==
LOC: Rad HDHVI 13:09
PROVIDERS: ATTEND Internal Medicine Cardiovascular Disease
DX: I25.10 Atherosclerotic heart disease of native coronary artery without angina pectoris (principal); R07.9 Chest pain, unspecified; I10 Essential (primary) hypertension; E78.5 Hyperlipidemia, unspecified
CPT/HCPCS: 78452; 93005; 96374; 96375; A9500; J0153

== ENCOUNTER → 2023-04-09 | Outpatient (CLI) | payer MEDICARE, MEDICAID ==
[~2023-04-09] MED LIST changes: -ADENOSINE 63 MG in GIVE UN-DILUTED 0 ML IV ONE; -ADENOSINE 90 MG/30 ML INJ IV ONE; -AML5T PO; -ATOR40TA52 PO; -HYOS0.1293 PO; +LOSA100T58 PO
[2023-04-09 13:58] VITALS: BP 138/60
[2023-04-09 14:10] VITALS: BP 118/56
== END | disposition home or self-care (01) ==
LOC: CHF HDHVI 13:50
PROVIDERS: ATTEND Internal Medicine Cardiovascular Disease
DX: M79.601 Pain in right arm (principal); R07.9 Chest pain, unspecified; R06.02 Shortness of breath
CPT/HCPCS: G0463

== ENCOUNTER 2023-05-09 16:23 | Emergency (ER) | payer MEDICARE, MEDICAID ==
[~2023-05-09] VITALS: Ht 152.4 cm; Wt 77.8 kg
[2023-05-09] MEDS ORDERED: LIDOCAINE 1% HCL (LOCAL ANESTH.) INJ 20ML MDV IJ ONE (17:00)
[2023-05-09 17:19] VITALS: O2SAT 98
[2023-05-09] MEDS ORDERED: CEPH500C PO (17:26)
[2023-05-09] MEDS ORDERED: ACET-1080 PO (17:26)
[2023-05-09 17:39] VITALS: BP 150/86; PULSE 80; RESP 18; O2SAT 98
== END 2023-05-09 17:40 | disposition home or self-care (01) ==
LOC: ER 16:23
DX: S61.512A Laceration without foreign body of left wrist, initial encounter (principal); I25.10 Atherosclerotic heart disease of native coronary artery without angina pectoris; I10 Essential (primary) hypertension; E78.5 Hyperlipidemia, unspecified; Z88.8 Allergy status to other drugs, medicaments and biological substances; Z79.899 Other long term (current) drug therapy; W25.XXXA Contact with sharp glass, initial encounter; Y93.89 Activity, other specified; Y92.89 Other specified places as the place of occurrence of the external cause; Y99.8 Other external cause status
CPT/HCPCS: 12002; 99283; J2001

== ENCOUNTER → 2023-05-25 | Outpatient (CLI) | payer MEDICARE, MEDICAID ==
[~2023-05-25] MED LIST changes: +ACET-1080 PO; +BACITRACIN TOP OINT 1 UD PKG TOP ONE; +CEPH500C PO
[2023-05-25 15:50] VITALS: BP 131/65; PULSE 69; RESP 16; O2SAT 97
[2023-05-25 16:04] VITALS: BP 124/62; PULSE 66; RESP 16; O2SAT 97
== END | disposition home or self-care (01) ==
LOC: CHF HDHVI 15:41
PROVIDERS: ATTEND Internal Medicine Cardiovascular Disease
DX: Z48.02 Encounter for removal of sutures (principal)
CPT/HCPCS: G0463

== ENCOUNTER 2023-07-20 10:53 | Inpatient (IN) | payer MEDICARE, MEDICAID ==
[~2023-07-20] VITALS: Ht 152.4 cm; Wt 79.0 kg
[~2023-07-20 10:53] MED LIST changes: -BACITRACIN TOP OINT 1 UD PKG TOP ONE
[2023-07-20] MEDS ORDERED: ASPirin 81 mg TAB PO ONE (11:15)
[2023-07-20 11:17] LABS: Basophils # (auto) 0 10 ^3/uL (0-0.2); Basophils % (auto) 0.7 % (0.0-2.0); Eosinophils # (auto) 0.1 10 ^3/uL (0-0.8); Eosinophils % (auto) 1.1 % (0.0-7.0); Hematocrit 43.2 % (36.0-46.0); Hemoglobin 14.2 g/dL (12.2-16.2); Lymphocytes # (auto) 2.3 10 ^3/uL (0.4-5.4); Lymphocytes % (auto) 30.4 % (10.0-50.0); Mean Corpuscular Hemoglobin 28.7 pg (28.0-32.0); Mean Corpuscular Hgb Conc. 32.9 g/dL (32.0-36.0); Mean Corpuscular Volume 87.2 fL (80.0-100.0); Monocytes # (auto) 0.9 10 ^3/uL (0-1.3); Neutrophils # (auto) 4.1 10 ^3/uL (1.6-8.6); Neutrophils % (auto) 55.8 % (37.0-80.0); Nucleated Red Blood Cells % 0.2 %; Red Blood Cells 4.95 10^6/uL (4.0-5.20); Red Cell Distribution Width 16.2 % (11.8-14.3); White Blood Cell 7.4 10^3/uL (4.4-10.8)
[2023-07-20 11:40] LABS: Alanine Aminotransferase 221 U/L (7-40); Albumin 4.2 g/dL (3.2-4.8); Alkaline Phosphatase 101 U/L (46-116); Anion Gap 7 (5-15); Aspartate Aminotransferase 122 U/L (13-40); BUN/Creatinine Ratio 20.3 (10.0-20.0); Bilirubin, Total 0.5 mg/dL (0.2-1.0); Blood Urea Nitrogen 15 mg/dL (9-23); Calcium 9.2 mg/dL (8.7-10.4); Carbon Dioxide 24 mmol/L (20-30); Chloride 106 mmol/L (98-107); Glucose 92 mg/dL (74-106); INR 1.05 (0.9-1.15); Partial Thromboplastin Time 24.8 SEC (24.5-34.5); Potassium 4.3 mmol/L (3.5-5.1); Sodium 137 mmol/L (136-145); Total Protein 7.3 g/dL (5.7-8.2)
[2023-07-20] MEDS ORDERED: MORPHINE SULFATE INJ 2 MG/ml SYRG IV PRN (14:00)
[2023-07-20] MEDS ORDERED: NITROGLYCERIN 0.4 MG SL TAB SL PRN (14:00)
[2023-07-20 14:35] LABS: Folate (Folic Acid) 18.33 ng/mL (>5.38)
[2023-07-20] MEDS ORDERED: ACETAMINOPHEN 325 MG TAB PO PRN (16:15)
[2023-07-20] MEDS ORDERED: hydrALAZINE HCL 20 MG/ML VL IV PRN (17:30)
[2023-07-20] MEDS ORDERED: ONDANSETRON HCL 4 MG/2 ML VIAL IV PRN (19:45)
[2023-07-20 21:27] LABS: COVID19 ANTIGEN SOFIA FIA NEGATIVE (NEGATIVE)
[2023-07-20] MEDS: LOSARTAN POTASSIUM 50 MG TAB PO SCH (22:43)
[2023-07-20] MEDS: ENOXAPARIN SOD 40 MG/0.4 ML SYRINGE SC SCH (22:45)
[2023-07-21] VITALS (8 sets, daily range): BP systolic 110–147; BP diastolic 47–76; PULSE 55–79; RESP 12–20; TEMP 97.4–98.6; O2SAT 93–96
[2023-07-21] MEDS: SODIUM CHLOR 0.9% PF (SALINE LOCK) 10ML VIAL/SYR IV SCH ×4 (01:17→21:05)
[2023-07-21] MEDS: cloNIDine HCL 0.1 MG TAB PO SCH ×3 (01:17→21:04)
[2023-07-21 02:19] LABS: Urine Bacteria NONE SEEN /hpf (None Seen); Urine Blood Negative /uL (Negative); Urine Clarity Clear (Clear); Urine Protein, UAD Negative (Negative); Urine Specific Gravity 1.005 (1.001-1.035); Urine Urobilinogen Normal (Negative); Urine WBC 4 /hpf (0 - 5)
[2023-07-21 03:11] LABS: Urine Color Straw (Yellow)
[2023-07-21 03:41] LABS: Rapid Influenza A Negative (Negative); Rapid Influenza B Negative (Negative)
[2023-07-21 06:32] LABS: Basophils # (auto) 0 10 ^3/uL (0-0.2); Basophils % (auto) 0.6 % (0.0-2.0); Eosinophils # (auto) 0.1 10 ^3/uL (0-0.8); Eosinophils % (auto) 0.7 % (0.0-7.0); Hematocrit 41.7 % (36.0-46.0); Hemoglobin 13.6 g/dL (12.2-16.2); Lymphocytes # (auto) 2.6 10 ^3/uL (0.4-5.4); Lymphocytes % (auto) 33.1 % (10.0-50.0); Mean Corpuscular Hemoglobin 28.7 pg (28.0-32.0); Mean Corpuscular Hgb Conc. 32.6 g/dL (32.0-36.0); Monocytes # (auto) 0.8 10 ^3/uL (0-1.3); Monocytes % (auto) 10.1 % (0.0-12.0); Neutrophils # (auto) 4.3 10 ^3/uL (1.6-8.6); Neutrophils % (auto) 55.5 % (37.0-80.0); Nucleated Red Blood Cells % 0.1 %; Red Blood Cells 4.74 10^6/uL (4.0-5.20); Red Cell Distribution Width 16.4 % (11.8-14.3); White Blood Cell 7.8 10^3/uL (4.4-10.8)
[2023-07-21 07:01] LABS: Alanine Aminotransferase 193 U/L (7-40); Albumin 3.7 g/dL (3.2-4.8); Alkaline Phosphatase 80 U/L (46-116); Anion Gap 9 (5-15); Aspartate Aminotransferase 111 U/L (13-40); BUN/Creatinine Ratio 21.5 (10.0-20.0); Blood Urea Nitrogen 17 mg/dL (9-23); Carbon Dioxide 24 mmol/L (20-30); Chloride 106 mmol/L (98-107); Cholesterol 209 mg/dL (< 200); Glucose 97 mg/dL (74-106); HDL Cholesterol 37 mg/dL (40-59); LDL Cholesterol 154 mg/dL (< 100); Potassium 3.9 mmol/L (3.5-5.1); Sodium 139 mmol/L (136-145); Triglycerides 150 mg/dL (< 150)
[2023-07-21 07:02] LABS: Bilirubin, Total 0.5 mg/dL (0.2-1.0); Total Protein 6.7 g/dL (5.7-8.2)
[2023-07-21 07:13] LABS: Magnesium 2.1 mg/dL (1.6-2.6)
[2023-07-21] MEDS: ENOXAPARIN SOD 40 MG/0.4 ML SYRINGE SC SCH (08:43)
[2023-07-21] MEDS: LOSARTAN POTASSIUM 50 MG TAB PO SCH (08:43)
[2023-07-21] MEDS: ASPirin 81 mg TAB PO SCH (08:43)
[2023-07-21] MEDS: METOPROLOL SUCCINATE XL 50 MG TAB PO SCH (08:44)
[2023-07-21] MEDS: PANTOPRAZOLE 40 MG TAB PO SCH (08:44)
[2023-07-21] MEDS ORDERED: LOSARTAN POTASSIUM 50 MG TAB PO SCH (10:00)
[2023-07-21] MEDS ORDERED: ERTAPENEM SOD INJ 1 GM in SODIUM CHL 0.9% 50 ML IV ONE (12:30)
[2023-07-21] MEDS: ATORVASTATIN 20 MG TAB PO SCH (21:04)
[2023-07-22] VITALS (7 sets, daily range): BP systolic 113–158; BP diastolic 43–78; PULSE 60–65; RESP 16–20; TEMP 97.3–98.7; O2SAT 92–96
[2023-07-22 05:49] LABS: Basophils # (auto) 0 10 ^3/uL (0-0.2); Basophils % (auto) 0.7 % (0.0-2.0); Eosinophils # (auto) 0.1 10 ^3/uL (0-0.8); Eosinophils % (auto) 1.3 % (0.0-7.0); Hematocrit 41.8 % (36.0-46.0); Hemoglobin 13.6 g/dL (12.2-16.2); Lymphocytes # (auto) 2.4 10 ^3/uL (0.4-5.4); Lymphocytes % (auto) 44.7 % (10.0-50.0); Mean Corpuscular Hemoglobin 28.9 pg (28.0-32.0); Mean Corpuscular Hgb Conc. 32.5 g/dL (32.0-36.0); Mean Corpuscular Volume 88.9 fL (80.0-100.0); Monocytes # (auto) 0.7 10 ^3/uL (0-1.3); Monocytes % (auto) 12.8 % (0.0-12.0); Neutrophils # (auto) 2.2 10 ^3/uL (1.6-8.6); Neutrophils % (auto) 40.5 % (37.0-80.0); Nucleated Red Blood Cells % 0.1 %; Red Blood Cells 4.71 10^6/uL (4.0-5.20); Red Cell Distribution Width 16.1 % (11.8-14.3); White Blood Cell 5.5 10^3/uL (4.4-10.8)
[2023-07-22] MEDS: SODIUM CHLOR 0.9% PF (SALINE LOCK) 10ML VIAL/SYR IV SCH ×3 (06:00→22:00)
[2023-07-22 06:03] LABS: Alanine Aminotransferase 201 U/L (7-40); Albumin 3.8 g/dL (3.2-4.8); Alkaline Phosphatase 86 U/L (46-116); Anion Gap 7 (5-15); Aspartate Aminotransferase 125 U/L (13-40); BUN/Creatinine Ratio 25.9 (10.0-20.0); Blood Urea Nitrogen 21 mg/dL (9-23); Calcium 9.2 mg/dL (8.7-10.4); Carbon Dioxide 24 mmol/L (20-30); Chloride 107 mmol/L (98-107); Glucose 99 mg/dL (74-106); Potassium 4.1 mmol/L (3.5-5.1); Sodium 138 mmol/L (136-145)
[2023-07-22 06:04] LABS: Bilirubin, Total 0.4 mg/dL (0.2-1.0); Total Protein 6.8 g/dL (5.7-8.2)
[2023-07-22] MEDS: ERTAPENEM SOD INJ 1 GM in SODIUM CHL 0.9% 50 ML IV SCH (10:17)
[2023-07-22] MEDS: PANTOPRAZOLE 40 MG TAB PO SCH (10:17)
[2023-07-22] MEDS: ASPirin 81 mg TAB PO SCH (10:18)
[2023-07-22] MEDS: cloNIDine HCL 0.1 MG TAB PO SCH ×2 (10:18→21:31)
[2023-07-22] MEDS: LOSARTAN POTASSIUM 50 MG TAB PO SCH (10:24)
[2023-07-22] MEDS: ENOXAPARIN SOD 40 MG/0.4 ML SYRINGE SC SCH (10:25)
[2023-07-22] MEDS: METOPROLOL SUCCINATE XL 50 MG TAB PO SCH (10:25)
[2023-07-22] MEDS: ATORVASTATIN 20 MG TAB PO SCH (21:28)
[2023-07-23] MEDS: SODIUM CHLOR 0.9% PF (SALINE LOCK) 10ML VIAL/SYR IV SCH ×2 (05:15→15:26)
[2023-07-23 05:16] VITALS: BP 117/60; PULSE 61; RESP 18; TEMP 98.2; O2SAT 93
[2023-07-23 06:30] LABS: Alanine Aminotransferase 179 U/L (7-40); Alkaline Phosphatase 86 U/L (46-116); Anion Gap 8 (5-15); Calcium 9.1 mg/dL (8.7-10.4); Carbon Dioxide 25 mmol/L (20-30); Chloride 107 mmol/L (98-107); Potassium 4.1 mmol/L (3.5-5.1); Sodium 140 mmol/L (136-145)
[2023-07-23 06:31] LABS: Aspartate Aminotransferase 99 U/L (13-40); BUN/Creatinine Ratio 20.7 (10.0-20.0); Blood Urea Nitrogen 17 mg/dL (9-23); Glucose 102 mg/dL (74-106)
[2023-07-23 06:33] LABS: Albumin 3.7 g/dL (3.2-4.8); Bilirubin, Total 0.5 mg/dL (0.2-1.0); Total Protein 6.7 g/dL (5.7-8.2)
[2023-07-23 08:00] VITALS: BP 121/70; PULSE 59; PULSE 63; RESP 19; TEMP 98.2; O2SAT 92
[2023-07-23 09:00] VITALS: BP 121/70; PULSE 63; RESP 19; TEMP 98.2; O2SAT 92
[2023-07-23 09:08] LABS: Hepatitis B Surface Antigen Negative (Negative)
[2023-07-23 09:31] LABS: Hepatitis C Antibody Negative (Negative)
[2023-07-23] MEDS: ERTAPENEM SOD INJ 1 GM in SODIUM CHL 0.9% 50 ML IV SCH (09:37)
[2023-07-23] MEDS: METOPROLOL SUCCINATE XL 50 MG TAB PO SCH (09:38)
[2023-07-23] MEDS: ASPirin 81 mg TAB PO SCH (09:38)
[2023-07-23] MEDS: LOSARTAN POTASSIUM 50 MG TAB PO SCH (09:39)
[2023-07-23] MEDS: PANTOPRAZOLE 40 MG TAB PO SCH (09:39)
[2023-07-23] MEDS: cloNIDine HCL 0.1 MG TAB PO SCH (09:39)
[2023-07-23] MEDS: ENOXAPARIN SOD 40 MG/0.4 ML SYRINGE SC SCH (09:40)
[2023-07-23 12:29] VITALS: BP 119/68; PULSE 65; RESP 20; TEMP 97.9; O2SAT 96
[2023-07-23 15:06] VITALS: BP 122/46; PULSE 65; RESP 20; TEMP 97.9; O2SAT 96
[2023-07-23 16:26] VITALS: BP 150/70; PULSE 57; RESP 19; TEMP 97.6; O2SAT 94
== END 2023-07-23 16:05 | disposition home or self-care (01) | DRG 313 ==
LOC: ER 10:53 → TELE 14:07 → TELE-WESTW 23:55
PROVIDERS: ADMIT Internal Medicine; ATTEND Internal Medicine Cardiovascular Disease
DX: R07.89 Other chest pain (principal); N39.0 Urinary tract infection, site not specified; I10 Essential (primary) hypertension; K21.9 Gastro-esophageal reflux disease without esophagitis; E78.5 Hyperlipidemia, unspecified; Z20.822 Contact with and (suspected) exposure to COVID-19; R74.01 Elevation of levels of liver transaminase levels; Z88.8 Allergy status to other drugs, medicaments and biological substances; Z79.82 Long term (current) use of aspirin; I25.10 Atherosclerotic heart disease of native coronary artery without angina pectoris
CPT/HCPCS: 36415; 71045; 80053; 80061; 81001; 82607; 82746; 83036; 83735; 83880; 84443; 84484; 85025; 85379; 85610; 85730; 86803; 87086; 87340; 87426; 87804; 93005; 93886; 93970; G0378; J1335

== ENCOUNTER 2023-11-13 15:38 | Inpatient (IN) | payer MEDICARE, MEDICAID ==
[~2023-11-13] VITALS: Ht 152.4 cm; Wt 77.1 kg
[~2023-11-13 15:38] MED LIST changes: -CEPH500C PO
[2023-11-13 16:28] LABS: Basophils # (auto) 0 10 ^3/uL (0-0.2); Basophils % (auto) 0.4 % (0.0-2.0); Eosinophils # (auto) 0.1 10 ^3/uL (0-0.8); Eosinophils % (auto) 0.7 % (0.0-7.0); Hematocrit 50.9 % (36.0-46.0); Lymphocytes # (auto) 3.6 10 ^3/uL (0.4-5.4); Lymphocytes % (auto) 30.8 % (10.0-50.0); Mean Corpuscular Hemoglobin 30.3 pg (28.0-32.0); Mean Corpuscular Hgb Conc. 33.3 g/dL (32.0-36.0); Mean Corpuscular Volume 90.9 fL (80.0-100.0); Monocytes # (auto) 1.4 10 ^3/uL (0-1.3); Monocytes % (auto) 12.3 % (0.0-12.0); Neutrophils # (auto) 6.4 10 ^3/uL (1.6-8.6); Neutrophils % (auto) 55.8 % (37.0-80.0); Nucleated Red Blood Cells % 0.2 %; Red Cell Distribution Width 15.7 % (11.8-14.3); White Blood Cell 11.6 10^3/uL (4.4-10.8)
[2023-11-13 16:47] LABS: Alanine Aminotransferase 270 U/L (7-40); Albumin 4.5 g/dL (3.2-4.8); Alkaline Phosphatase 104 U/L (46-116); Anion Gap 9 (5-15); Aspartate Aminotransferase 164 U/L (13-40); BUN/Creatinine Ratio 26.2 (10.0-20.0); Blood Urea Nitrogen 22 mg/dL (9-23); Calcium 9.9 mg/dL (8.7-10.4); Carbon Dioxide 23 mmol/L (20-30); Chloride 103 mmol/L (98-107); Glucose 115 mg/dL (74-106); Lipase 48 U/L (12-53); Potassium 4.3 mmol/L (3.5-5.1); Sodium 135 mmol/L (136-145)
[2023-11-13 16:48] LABS: Bilirubin, Total 0.6 mg/dL (0.2-1.0); Total Protein 7.8 g/dL (5.7-8.2)
[2023-11-13 17:40] LABS: Urine Bacteria NONE SEEN /hpf (None Seen); Urine Blood Negative /uL (Negative); Urine Clarity Clear (Clear); Urine Color Colorless (Yellow); Urine Protein, UAD Negative (Negative); Urine Specific Gravity 1.007 (1.001-1.035); Urine Urobilinogen Normal (Negative); Urine WBC 1 /hpf (0 - 5)
[2023-11-13] MEDS ORDERED: MORPHINE SULFATE INJ 2 MG/ml SYRG IV PRN (23:15)
[2023-11-13] MEDS ORDERED: LABETALOL HCL 5 MG/ML 4ML SYRINGE IV PRN (23:15)
[2023-11-13] MEDS ORDERED: NITROGLYCERIN 0.4 MG SL TAB SL PRN (23:15)
[2023-11-14] MEDS: LABETALOL HCL 5 MG/ML 4ML SYRINGE IV ONE (00:30)
[2023-11-14] MEDS: ONDANSETRON HCL 4 MG/2 ML VIAL IV PRN (00:30)
[2023-11-14] MEDS: SODIUM CHLORIDE 0.9% 500 ML IV ONE (00:30)
[2023-11-14] MEDS: cefTRIAXone 1GM/50ML D5W 50 ML IV ONE (00:33)
[2023-11-14 01:15] LABS: COVID19 ANTIGEN SOFIA FIA NEGATIVE (NEGATIVE); Rapid Influenza A Negative (Negative); Rapid Influenza B Negative (Negative)
[2023-11-14 07:34] LABS: Basophils # (auto) 0 10 ^3/uL (0-0.2); Basophils % (auto) 0.4 % (0.0-2.0); Eosinophils # (auto) 0.1 10 ^3/uL (0-0.8); Eosinophils % (auto) 0.5 % (0.0-7.0); Hematocrit 50.3 % (36.0-46.0); Hemoglobin 16.5 g/dL (12.2-16.2); Lymphocytes # (auto) 2.5 10 ^3/uL (0.4-5.4); Lymphocytes % (auto) 26.6 % (10.0-50.0); Mean Corpuscular Hemoglobin 30.5 pg (28.0-32.0); Mean Corpuscular Hgb Conc. 32.8 g/dL (32.0-36.0); Mean Corpuscular Volume 92.9 fL (80.0-100.0); Monocytes # (auto) 1.1 10 ^3/uL (0-1.3); Monocytes % (auto) 11.6 % (0.0-12.0); Neutrophils # (auto) 5.8 10 ^3/uL (1.6-8.6); Neutrophils % (auto) 60.9 % (37.0-80.0); Nucleated Red Blood Cells % 0.2 %; Red Blood Cells 5.42 10^6/uL (4.0-5.20); Red Cell Distribution Width 15.8 % (11.8-14.3); White Blood Cell 9.4 10^3/uL (4.4-10.8)
[2023-11-14 07:39] LABS: Alanine Aminotransferase 270 U/L (7-40); Albumin 4.1 g/dL (3.2-4.8); Alkaline Phosphatase 89 U/L (46-116); Anion Gap 8 (5-15); Aspartate Aminotransferase 195 U/L (13-40); Bilirubin, Total 0.6 mg/dL (0.2-1.0); Blood Urea Nitrogen 19 mg/dL (9-23); Carbon Dioxide 23 mmol/L (20-30); Chloride 104 mmol/L (98-107); Glucose 110 mg/dL (74-106); Potassium 4.2 mmol/L (3.5-5.1); Sodium 135 mmol/L (136-145); Total Protein 7.3 g/dL (5.7-8.2)
[2023-11-14 09:00] VITALS: RESP 16; O2SAT 94
[2023-11-14] MEDS: cefTRIAXone 1GM/50ML D5W 50 ML IV SCH (09:16)
[2023-11-14] MEDS: LOSARTAN POTASSIUM 50 MG TAB PO SCH (10:00)
[2023-11-14] MEDS: cloNIDine HCL 0.1 MG TAB PO SCH (10:00)
[2023-11-14] MEDS: METOPROLOL SUCCINATE XL 50 MG TAB PO SCH (10:00)
[2023-11-14] MEDS: ENOXAPARIN SOD 40 MG/0.4 ML SYRINGE SC SCH (10:34)
[2023-11-14] MEDS: PANTOPRAZOLE 40 MG TAB PO SCH (10:34)
[2023-11-14 16:02] LABS: Basophils # (auto) 0 10 ^3/uL (0-0.2); Basophils % (auto) 0.4 % (0.0-2.0); Eosinophils # (auto) 0.1 10 ^3/uL (0-0.8); Eosinophils % (auto) 0.7 % (0.0-7.0); Hematocrit 46.5 % (36.0-46.0); Hemoglobin 15.3 g/dL (12.2-16.2); Lymphocytes # (auto) 3.1 10 ^3/uL (0.4-5.4); Lymphocytes % (auto) 33.2 % (10.0-50.0); Mean Corpuscular Hemoglobin 30.7 pg (28.0-32.0); Mean Corpuscular Hgb Conc. 32.9 g/dL (32.0-36.0); Mean Corpuscular Volume 93.2 fL (80.0-100.0); Monocytes # (auto) 1.4 10 ^3/uL (0-1.3); Monocytes % (auto) 14.5 % (0.0-12.0); Neutrophils # (auto) 4.8 10 ^3/uL (1.6-8.6); Neutrophils % (auto) 51.2 % (37.0-80.0); Nucleated Red Blood Cells % 0.2 %; Red Blood Cells 4.99 10^6/uL (4.0-5.20); Red Cell Distribution Width 16.3 % (11.8-14.3); White Blood Cell 9.4 10^3/uL (4.4-10.8)
[2023-11-14 16:25] LABS: Alanine Aminotransferase 254 U/L (7-40); Alkaline Phosphatase 85 U/L (46-116); Anion Gap 10 (5-15); Aspartate Aminotransferase 175 U/L (13-40); BUN/Creatinine Ratio 20.4 (10.0-20.0); Bilirubin, Total 0.6 mg/dL (0.2-1.0); Blood Urea Nitrogen 19 mg/dL (9-23); Calcium 9.8 mg/dL (8.5-10.1); Carbon Dioxide 23 mmol/L (20-30); Chloride 102 mmol/L (98-107); Glucose 101 mg/dL (74-106); Potassium 4.2 mmol/L (3.5-5.1); Sodium 135 mmol/L (136-145)
[2023-11-14 16:26] LABS: Total Protein 6.8 g/dL (5.7-8.2)
[2023-11-15] VITALS (7 sets, daily range): BP systolic 114–125; BP diastolic 51–70; PULSE 64–114; RESP 14–19; TEMP 97.5–97.9; O2SAT 93–95
[2023-11-15 10:33] LABS: Alanine Aminotransferase 337 U/L (7-40); Alkaline Phosphatase 89 U/L (46-116)
[2023-11-15 10:34] LABS: Aspartate Aminotransferase 330 U/L (13-40)
[2023-11-15 18:35] LABS: Albumin 4.1 g/dL (3.2-4.8); Bilirubin, Direct 0.2 mg/dL (<0.3); Bilirubin, Total 0.7 mg/dL (0.2-1.0)
[2023-11-16] VITALS (7 sets, daily range): BP systolic 93–105; BP diastolic 46–59; PULSE 63–80; RESP 16–18; TEMP 97.8–97.9; O2SAT 93–96
[2023-11-16] MEDS ORDERED: GADOTERATE MEG 10 MMOL/20ml INJ (0.5MMOL/ml) IV ONE (08:43)
[2023-11-16] MEDS: ACETAMINOPHEN 325 MG TAB PO PRN (16:32)
[2023-11-16] MEDS: DOCUSATE SOD 100 MG CAP PO PRN (16:49)
[2023-11-17 05:05] VITALS: BP 110/53; PULSE 66; RESP 18; TEMP 98.2; O2SAT 95
[2023-11-17 06:19] LABS: Alanine Aminotransferase 256 U/L (7-40); Albumin 3.7 g/dL (3.2-4.8); Alkaline Phosphatase 77 U/L (46-116); Anion Gap 7 (5-15); Aspartate Aminotransferase 171 U/L (13-40); Bilirubin, Total 0.5 mg/dL (0.2-1.0); Blood Urea Nitrogen 21 mg/dL (9-23); Calcium 9.2 mg/dL (8.5-10.1); Carbon Dioxide 24 mmol/L (20-30); Chloride 107 mmol/L (98-107); Glucose 99 mg/dL (74-106); Potassium 4.2 mmol/L (3.5-5.1); Sodium 138 mmol/L (136-145); Total Protein 6.3 g/dL (5.7-8.2)
[2023-11-17 08:00] VITALS: PULSE 78; RESP 18; O2SAT 94
[2023-11-17 08:42] VITALS: BP 149/69; PULSE 77; RESP 16; TEMP 98; O2SAT 93
[2023-11-17 13:00] VITALS: BP 129/63; PULSE 82; RESP 15; TEMP 98; O2SAT 94
[2023-11-17 15:13] VITALS: BP 129/63; PULSE 77; RESP 15; TEMP 36.7; O2SAT 96
[2023-11-17 17:00] VITALS: BP 139/71; PULSE 68; RESP 19; TEMP 99.1; O2SAT 98
== END 2023-11-17 19:00 | disposition home or self-care (01) | DRG 441 ==
LOC: ER 15:38 → TELE 23:14 → TELE-EAST 11-15 14:01
PROVIDERS: ADMIT Nurse Practitioner Family; ATTEND Internal Medicine Cardiovascular Disease
DX: D13.4 Benign neoplasm of liver (principal); K85.90 Acute pancreatitis without necrosis or infection, unspecified; I16.0 Hypertensive urgency; K21.9 Gastro-esophageal reflux disease without esophagitis; D72.829 Elevated white blood cell count, unspecified; R74.01 Elevation of levels of liver transaminase levels; E78.5 Hyperlipidemia, unspecified; Z20.822 Contact with and (suspected) exposure to COVID-19; I10 Essential (primary) hypertension; I25.10 Atherosclerotic heart disease of native coronary artery without angina pectoris; D75.1 Secondary polycythemia; K76.0 Fatty (change of) liver, not elsewhere classified; Z96.651 Presence of right artificial knee joint; Z88.8 Allergy status to other drugs, medicaments and biological substances
CPT/HCPCS: 36415; 70450; 71045; 74176; 74183; 76705; 80053; 80076; 81001; 82977; 83605; 83615; 83690; 83880; 84075; 84450; 84460; 84484; 85025; 87426; 87804; 93005; G0378; J2405

== ENCOUNTER → 2024-01-14 | Outpatient (CLI) | payer MEDICARE, MEDICAID ==
[~2024-01-14] MED LIST changes: +LOSA-535 PO; -LOSA100T58 PO
== END | disposition home or self-care (01) ==
LOC: Rad HDHVI 08:58
PROVIDERS: ATTEND Internal Medicine Cardiovascular Disease
DX: I35.1 Nonrheumatic aortic (valve) insufficiency (principal); I10 Essential (primary) hypertension; R06.02 Shortness of breath
CPT/HCPCS: 93306

== ENCOUNTER → 2024-05-20 | Outpatient (CLI) | payer MEDICARE, MEDICAID ==
[2024-05-20 14:30] VITALS: BP 130/80; PULSE 100; RESP 20; O2SAT 95
[2024-05-20 14:54] VITALS: BP 131/66; PULSE 87; RESP 18; O2SAT 95
== END | disposition home or self-care (01) ==
LOC: CHF HDHVI 15:04
PROVIDERS: ATTEND Internal Medicine Cardiovascular Disease
DX: S91.302A Unspecified open wound, left foot, initial encounter (principal); X58.XXXA Exposure to other specified factors, initial encounter; Y93.89 Activity, other specified; Y92.89 Other specified places as the place of occurrence of the external cause; Y99.8 Other external cause status
CPT/HCPCS: G0463

== ENCOUNTER → 2025-01-07 | Outpatient (CLI) | payer MEDICARE, MEDICAID ==
[2025-01-07 11:30] VITALS: BP 153/71; PULSE 63; RESP 16; O2SAT 95
[2025-01-07] MEDS: cefTRIAXone 1GM/50ML D5W 50 ML IV ONE ×2 (11:35→11:43)
[2025-01-07 12:12] VITALS: BP 147/76; PULSE 61; RESP 16; O2SAT 95
== END | disposition home or self-care (01) ==
LOC: CHF HDHVI 11:30
PROVIDERS: ATTEND Internal Medicine Cardiovascular Disease
DX: H66.93 Otitis media, unspecified, bilateral (principal); K21.9 Gastro-esophageal reflux disease without esophagitis; I25.10 Atherosclerotic heart disease of native coronary artery without angina pectoris; I10 Essential (primary) hypertension; E78.5 Hyperlipidemia, unspecified
CPT/HCPCS: 96365; G0463; J0696

== ENCOUNTER 2025-02-23 16:31 | Emergency (ER) | payer MEDICARE, MEDICAID ==
[~2025-02-23] VITALS: Ht 152.4 cm; Wt 77.9 kg
--- NOTE | 2025-02-23 17:12 | ED.PDOC ---
HPI Comments Vitals Temperature: 98.0 F Respiratory rate: 16 SpO2: 97% Heart rate: 74 Blood pressure: 182/91 Past Medical History: HTN, HLD, GERD, CAD Past Surgical History: denies Social History: denies Medications: Aspirin, Clonidine, Metoprolol ADAMSON: 74-year-old female presents to emergency room for evaluation of hypertension unable to control blood pressure since Sunday. She is on metoprolol and clonidine. She states compliance with the medications and most recent intake was this morning. Patient has been having some nonspecific forehead headache intermittent nonradiating. She also complains of urinary symptoms of burning with urination and suprapubic discomfort only when she voids urine. Denies any associated nausea or vomiting or vision changes or acute focal neurological deficits HPI: Poor Historian. REVIEW OF SYSTEMS: CONSTITUTIONAL: Denies acute: fever, diaphoresis, chills, generalized weakness. HEAD: Denies acute: , photophobia Eyes: Denies acute: Double vision, vision loss, eye pain, eye discharge. EARS: Denies acute: tinnitus, hearing loss, ear discharge, ear pain, THROAT: Denies acute: sore throat, swelling, difficulty swallowing , pain with swallowing, change in voice. NECK: Denies acute: neck pain, neck swelling, stiff neck. HEART: Denies acute : chest pain, palpitations, LUNGS: Denies acute: SOB, wheezing, cough, hemoptysis ABDOMEN: Denies acute: Nausea, Vomiting, diarrhea, melena , hematemesis, hematochezia SKIN: Denies acute: rash, redness, lesions, itchiness. EXTREMITIES: Denies acute: calf pain, numbness, tingling, weakness, denies pain in extremity. Denies acute: Low back pain. Neuro: Denies acute: focal neurological deficit, motor or sensory focal neurological deficit, tremors, seizure like activity, confusion, dizziness, change in mental status, loss of bowel or bladder function, cauda equina like symptoms. : Denies acute: dysuria, hematuria, flank pain, increase in urinary frequency. PSYCH: Denies acute: hallucination, suicidal ideation, homicidal ideation. FEMALE: Denies acute: abnormal vaginal bleeding, foul odor, unusual discharge. PHYSICAL EXAM: General: ---mild-----acute distress, awake and alert. Head: normocephalic, atraumatic. Neck: supple, trachea is midline, no swelling. Throat: Normal phonation. Eyes:, no purulent discharge, no proptosis, no icterus. Left eye subconjunctival hemorrhage likely from hypertension Heart: regular rate, regular rhythm, no significant murmur appreciated. Lungs: no apparent respiratory distress, Able to speak in full sentences. No wheezing, no rhonchi, no crackles. No stridors Clear to auscultation bilaterally. Abdomen: Suprapubic minimal tender to palpation, non distended, soft, no g uarding, no rebound, + bowel sounds. Neuro: Awake, Alert, oriented to name, self, situation, follows commands GCS=15. Speech is normal. Skin: no petechia, no purpura, no cyanosis, non-pale, not jaundice. Lower extremities: --no - Pitting edema no deformity, no focal swelling, no calf TTP. Makes eye contact. moves all four extremities. Face: no apparent facial droop. Ambulating in the ED independently. ED COURSE: Chief Complaint: Urinary Time Seen by MD: 16:55 Primary Care Provider: Gianni Reviewed Notes: Medications, Allergies Allergies: Coded Allergies: Benazepril (Verified Allergy, Severe, 11/13/23) Hydrochlorothiazide (Verified Allergy, Severe, 11/13/23) Yellow Dye (Verified Allergy, Severe, 11/13/23) Lisinopril (Verified Allergy, Unknown, 04/12/21) ITCHING AND SWELLING OF LEGS Home Meds Active Scripts Nitrofurantoin Monohydrate Mac (Macrobid) 100 Mg Cap, 100 MG PO BID for 7 Days, #14 CAP Prov:SPEEDY BRASHER DO 02/23/25 Acetaminophen (Tylenol 8 Hour Arthritis) 650 Mg Tab, 650 MG PO TID, #24 TAB Prov:ALEXANDRO MARTINEZ 05/09/23 Reported Medications Losartan Potassium (Losartan Potassium) 100 Mg Tab, 1 TAB PO DAILY 03/25/23 Metoprolol Succinate (Metoprolol Succinate Er) 50 Mg Tab, 1 TAB PO DAILY, #30 TAB 5 Refills 01/16/23 Pantoprazole Sodium Sesquihydr (Pantoprazole Sodium) 40 Mg Tab, 40 MG PO DAILY, TAB 01/16/23 Clonidine Hydrochloride (Catapres) 0.1 Mg Tab, 1 TAB PO BID, #180 TAB 1 Refill 03/07/19 Information Source: Patient Mode of Arrival: Ambulatory Severity: Moderate Timing: Days Duration: Since onset Prehospital treatment: None Onset: At Rest Cardiac Risk Factors: Hyperlipidemia, HTN PE Risk Factors: None History of: Aspirin Modifying Factors: Nothing Past Medical History PAST MEDICAL HISTORY: CAD, GERD, High Lipids, HTN, UTI'S MANAGER SERVICE DESK History: No Pertinent MANAGER SERVICE DESK History Family History Family History: Reviewed,noncontributory to illness Social History Smoker: Non-Smoker Alcohol: Denies ETOH Use Drugs: Denies Drug Use Lives In: Home Was a procedure done? Was a procedure done?: No CP Differential Dx Differential Diagnosis: N/A Differential Diagnosis: Other (DDX include renal disease, thyroid disease, electrolyte abnormality, increased salt intake, medications non-compliance, undiagnosed HTN, Hypertensive crisis, hypertensive urgency., drug toxicity.) X-Ray, Labs, Meds, VS Vital Signs Date Time Temp Pulse Resp B/P (MAP) Pulse Ox O2 Delivery O2 Flow Rate FiO2 02/23/25 21:49 98.0 69 17 173/86 (115) 96 98.0 02/23/25 21:48 69 173/86 02/23/25 18:50 Room Air* 0 21 02/23/25 18:48 69 148/82 02/23/25 18:27 98.1 69 16 148/82 (104) 95 98.1 02/23/25 18:27 69 17 95 Room Air 02/23/25 16:52 98.0 74 16 182/91 (121) 97 98.0 Lab Test 02/23/25 20:09 02/23/25 18:04 02/23/25 17:11 02/23/25 16:48 Range/Units Troponin I High Sensitivity 3 L 3 L < 3 L </=34 ng/L White Blood Count 6.0 4.4-10.8 10^3/uL Red Blood Count 5.00 4.0-5.20 10^6/uL Hemoglobin 15.9 12.2-16.2 g/dL Hematocrit 47.1 H 36.0-46.0 % Mean Corpuscular Volume 94.1 80.0-100.0 fL Mean Corpuscular Hemoglobin 31.8 28.0-32.0 pg Mean Corpuscular Hemoglobin Concent 33.8 32.0-36.0 g/dL Red Cell Distribution Width 15.1 H 11.8-14.3 % Platelet Count 156 140-450 10^3/uL Mean Platelet Volume 8.5 6.9-10.8 fL Neutrophils (%) (Auto) 48.5 37.0-80.0 % Lymphocytes (%) (Auto) 37.7 10.0-50.0 % Monocytes (%) (Auto) 11.6 0.0-12.0 % Eosinophils (%) (Auto) 1.5 0.0-7.0 % Basophils (%) (Auto) 0.7 0.0-2.0 % Neutrophils # (Auto) 2.9 1.6-8.6 10 ^3/uL Lymphocytes # (Auto) 2.3 0.4-5.4 10 ^3/uL Monocytes # (Auto) 0.7 0-1.3 10 ^3/uL Eosinophils # (Auto) 0.1 0-0.8 10 ^3/uL Basophils # (Auto) 0 0-0.2 10 ^3/uL Nucleated Red Blood Cells 0.0 % Sodium Level 141 136-145 mmol/L Potassium Level 4.1 3.5-5.1 mmol/L Chloride Level 107 98-107 mmol/L Carbon Dioxide Level 24 20-31 mmol/L Anion Gap 10 5-15 Blood Urea Nitrogen 15 9-23 mg/dL Creatinine 0.77 0.550-1.02 mg/dL Glomerular Filtration Rate Calc 81 >90 mL/min BUN/Creatinine Ratio 19.5 10.0-20.0 Serum Glucose 122 H 74-106 mg/dL Calcium Level 9.8 8.7-10.4 mg/dL Total Bilirubin 0.4 0.2-1.0 mg/dL Aspartate Amino Transferase (AST) 112 H 13-40 U/L Alanine Aminotransferase (ALT) 208 H 7-40 U/L Alkaline Phosphatase 104 46-116 U/L Total Protein 6.7 5.7-8.2 g/dL Albumin 4.0 3.2-4.8 g/dL Urine Color Colorless Yellow Urine Clarity Clear Clear Urine pH 6.5 5.0-9.0 Urine Specific Elizabeth 1.007 1.001-1.035 Urine Protein Negative Negative Urine Ketones Negative Negative Urine Blood 2+ H Negative /uL Urine Nitrite Negative Negative Urine Bilirubin Negative Negative Urine Urobilinogen Normal Negative mg/dL Urine Leukocyte Esterase 3+ Negative /uL Urine RBC 2 0 - 4 /hpf Urine Microscopic WBC 83 H 0-5 /HPF Urine Squamous Epithelial Cells None seen <5 /hpf Urine Bacteria None seen None Seen /hpf Urine Glucose Normal Normal mg/dL Current Medications Medications (Trade) Dose Ordered Sig/Masha Route Start Time Stop Time Status Last Admin Labetalol HCl (Labetalol HCl) 5 mg ONCE ONCE IV 02/23/25 17:00 02/23/25 17:01 DC 02/23/25 18:48 [place] [id number] Ph: [phone] DIAGNOSTIC IMAGING Diagnostic Imaging Report : [id number] Signed PATIENT: XI MANJARREZCT: [id number] UNIT: [id number] : 1950 LOC: ER ROOM / BED: / AGE / SEX: 74 / F ADM STATUS: REG ER SERVICE 165 ORDERING PHYSICIAN: SPEEDY BRASHER DO PROCEDURE(s): HWOCT - HEAD WITHOUT CONTRAST REASON: HTN ORDER NUMBER(s): [id number], ACCESSION NUMBER(s): [id number] EXAM: CT HEAD WITHOUT CONTRAST INDICATION: HTN EXAM DATE: 02/23/2025 05:15 PM COMPARISON: CT HEAD WITHOUT CONTRAST on DOS: 04/29/24, CT HEAD WITHOUT CONTRAST on DOS: 11/13/23, CT HEAD WITHOUT CONTRAST on DOS: 03/23/23, CT HEAD WITHOUT CONTRAST on DOS: 01/15/23 TECHNIQUE: CT of the head without intravenous contrast. Radiation Dose Information: CTDI volume is 63.08 mGy. Dose-length product is 1116.7 mGy*cm FINDINGS: There is no evidence of acute intracranial hemorrhage, extra-axial collection, mass effect, midline shift, herniation or hydrocephalus. The ventricles, sulci and cisterns are age appropriate. The arias-white differentiation is intact. The visualized paranasal sinuses and mastoid air cells are clear. The surrounding so ft tissues and osseous structures are unremarkable. Bilateral hyperostosis frontalis interna. IMPRESSION: 1. No evidence of acute intracranial hemorrhage, mass effect or hydrocephalus. END IMPRESSION: ATED BY: DEVEN BENJAMIN MD DICTATED DATE/TIME: 02/23/251739 SIGNED BY: DEVEN BENJAMIN MD SIGNED DATE/TIME: 02/23/251739 CC: [place] [id number] Ph: [phone] DIAGNOSTIC IMAGING Diagnostic Imaging Report : [id number] Signed PATIENT: XI MANJARREZCT: [id number] UNIT: [id number] : 1950 LOC: ER ROOM / BED: / AGE / SEX: 74 / F ADM STATUS: REG ER SERVICE 51 ORDERING PHYSICIAN: SPEEDY BRASHER DO PROCEDURE(s): CXRP - CHEST PORTABLE REASON: HTN ORDER NUMBER(s): [id number], ACCESSION NUMBER(s): [id number] CHEST RADIOGRAPH Indication: HTN Technique: Single frontal view of the chest was obtained Comparison: No prior chest x-rays available for comparison. FINDINGS: Lines and Tubes: None Lungs: No focal consolidation. Pleura: No effusion. No pneumothorax. Cardiomediastinal contours: Unremarkable Bones: No acute osseous abnormality. IMPRESSION: 1. No acute cardiopulmonary disease. ATED BY: NEIL PANG Jr., DO DICTATED DATE/TIME: 02/23/251737 SIGNED BY: NEIL PANG Jr., DO SIGNED DATE/TIME: 02/23/251737 CC: Time of 1ST Reevaluation: 17:25 Reevaluation 1ST: Unchanged Time of 2ND Reevaluation: 20:05 (Patient has elevated LFTs which is significantly improved from her previous elevation of LFTs in the past.) Patient Education/Counseling: Diagnosis, Treatment Family Education/Counseling: No Family Present Comments Patient presented with the above HPI.--hypertensive urgency and urinary symptoms----workup was initiated. patient was found with the above mentioned diagnosis. the following medications were ordered: please refer to order lists of meds and tests obtained by myself Dr. Brasher. Patient ED course and VS have been stabilized. Patient has been reassessed in the ED and remained in a stable condition. Pertinent incidental findings were discussed with the patient and/or family. Patient/family voices understanding and is agreeable with plan. Patient has been observed in the ED adequate length of time to insure improvement/stability. Escalation of care considered: Consideration of escalation to observation or admission Patient was DISCHARGED home in a stable condition. All the reports of any imaging studies that were ordered by myself were reviewed by myself. Departure 1 Departure Time of Disposition: 20:06 Impression: Primary Impression: Hypertensive urgency Additional Impressions: Urinary tract infection Subconjunctival hemorrhage of right eye Elevated LFTs Disposition: HOME / SELF CARE / HOMELESS Condition: Stable Additional Instructions: Additional instructions: You MUST follow-up with your primary care/family doctor in 1 to 2 days. If you are unable to see your primary care/family doctor, please return to our emergency room for re-assessment and re-evaluation in 1 to 2 days. Return to the emergency room here in our facility or to the nearest ER [facility] if your symptoms change or worsen. CONSULTATIONS: you MUST Follow-up for consultation as soon as possible with: -cardiology and gastroenterology in 1-2 days. Please call for appointment. You MUST call the consultants office yourself to make an appointment. You may need to arrange that through your insurance and/or your primary/family doctor. If you are unable to see the farm consultant in 1 to 2 days, you must return to our emergency room (or any other ER of your choice) for re-assessment and re- evaluation. Adequate fluid hydration. Monitor blood pressure at home at least 3 times a day. Salt restrictions. e-Prescriptions Nitrofurantoin Monohydrate Mac (Macrobid) 100 Mg Cap 100 MG PO BID for 7 Days, #14 CAP Prov: SPEEDY BRASHER DO 02/23/25 Discharged With: Self Critical Care Note Critical Care Time?: No Heart Score Heart Score: Heart Score Response (Comments) Value History Slightly Suspicious 0 EKG Normal 0 Age >65 2 Risk Factors 1 or 2 risk factors 1 Troponin Normal limit 0 Total 3 I personally scribed for SPEEDY BRASHER DO ([email or web address]) on 02/23/25 at 17:12. Electronically submitted by Maria Guadalupe Butts ([email or web address]). I personally scribed for SPEEDY BRASHER DO ([email or web address]) on 02/23/25 at 17:24. Electronically submitted by Maria Guadalupe Butts ([email or web address]). I personally scribed for SPEEDY BRASHER DO ([email or web address]) on 02/23/25 at 17:55. Electronically submitted by Maria Guadalupe Butts ([email or web address]). I personally scribed for SPEEDY BRASHER DO ([email or web address]) on 02/23/25 at 18:54. Electronically submitted by Luis Leahy ([email or web address]). SPEEDY BRASHER DO February 23, 2025 17:12
[2025-02-23 17:35] LABS: Basophils # (auto) 0 10 ^3/uL (0-0.2); Basophils % (auto) 0.7 % (0.0-2.0); Eosinophils # (auto) 0.1 10 ^3/uL (0-0.8); Eosinophils % (auto) 1.5 % (0.0-7.0); Hematocrit 47.1 % (36.0-46.0); Hemoglobin 15.9 g/dL (12.2-16.2); Lymphocytes # (auto) 2.3 10 ^3/uL (0.4-5.4); Lymphocytes % (auto) 37.7 % (10.0-50.0); Mean Corpuscular Hemoglobin 31.8 pg (28.0-32.0); Mean Corpuscular Hgb Conc. 33.8 g/dL (32.0-36.0); Mean Corpuscular Volume 94.1 fL (80.0-100.0); Monocytes # (auto) 0.7 10 ^3/uL (0-1.3); Monocytes % (auto) 11.6 % (0.0-12.0); Neutrophils # (auto) 2.9 10 ^3/uL (1.6-8.6); Neutrophils % (auto) 48.5 % (37.0-80.0); Platelet Count (auto) 156 10^3/uL (140-450); Red Cell Distribution Width 15.1 % (11.8-14.3)
--- NOTE | 2025-02-23 17:40 | DVH ---
CHEST RADIOGRAPH Indication: HTN Technique: Single frontal view of the chest was obtained Comparison: No prior chest x-rays available for comparison. FINDINGS: Lines and Tubes: None Lungs: No focal consolidation. Pleura: No effusion. No pneumothorax. Cardiomediastinal contours: Unremarkable Bones: No acute osseous abnormality. IMPRESSION: 1. No acute cardiopulmonary disease.
--- NOTE | 2025-02-23 17:42 | DVH ---
EXAM: CT HEAD WITHOUT CONTRAST INDICATION: HTN EXAM DATE: 02/23/2025 05:15 PM COMPARISON: CT HEAD WITHOUT CONTRAST on DOS: 04/29/24, CT HEAD WITHOUT CONTRAST on DOS: 11/13/23, CT HE AD WITHOUT CONTRAST on DOS: 03/23/23, CT HEAD WITHOUT CONTRAST on DOS: 01/15/23 TECHNIQUE: CT of the head without intravenous contrast. Radiation Dose Information: CTDI volume is 63.08 mGy. Dose-length product is 1116.7 mGy*cm FINDINGS: There is no evidence of acute intracranial hemorrhage, extra-axial collection, mass effect, midline s hift, herniation or hydrocephalus. The ventricles, sulci and cisterns are age appropriate. The arias-w maite differentiation is intact. The visualized paranasal sinuses and mastoid air cells are clear. The surrounding soft tissues and osseous structures are unremarkable. Bilateral hyperostosis frontalis i nterna. IMPRESSION: 1. No evidence of acute intracranial hemorrhage, mass effect or hydrocephalus. END IMPRESSION:
[2025-02-23 17:54] LABS: Alkaline Phosphatase 104 U/L (46-116); Anion Gap 10 (5-15); BUN/Creatinine Ratio 19.5 (10.0-20.0); Bilirubin, Total 0.4 mg/dL (0.2-1.0); Blood Urea Nitrogen 15 mg/dL (9-23); Calcium 9.8 mg/dL (8.7-10.4); Carbon Dioxide 24 mmol/L (20-31); Chloride 107 mmol/L (98-107); Potassium 4.1 mmol/L (3.5-5.1); Sodium 141 mmol/L (136-145); Total Protein 6.7 g/dL (5.7-8.2)
[2025-02-23 18:18] LABS: Alanine Aminotransferase 208 U/L (7-40); Aspartate Aminotransferase 112 U/L (13-40); Glucose 122 mg/dL (74-106)
[2025-02-23 18:34] LABS: Urine Bacteria None Seen /hpf (None Seen)
[2025-02-23 18:45] LABS: Urine Blood 2+ /uL (Negative); Urine Clarity Clear (Clear); Urine Color Colorless (Yellow); Urine Protein, UAD Negative (Negative); Urine Specific Gravity 1.007 (1.001-1.035); Urine Squamous Epithelial Cell None Seen /hpf (<5); Urine Urobilinogen Normal (Negative); Urine WBC 83 /HPF (0-5); Urine pH 6.5 (5.0-9.0)
[2025-02-23] MEDS: LABETALOL HCL 20 MG/4 ML VL IV ONE (18:48)
[2025-02-23] MEDS ORDERED: NITR-87 PO (20:07)
[2025-02-23 21:49] VITALS: BP 173/86; PULSE 69; RESP 17; TEMP 98; O2SAT 96
== END 2025-02-23 21:33 | disposition home or self-care (01) ==
LOC: ER 16:31
DX: I16.0 Hypertensive urgency (principal); N39.0 Urinary tract infection, site not specified; H11.31 Conjunctival hemorrhage, right eye; R79.89 Other specified abnormal findings of blood chemistry; E78.5 Hyperlipidemia, unspecified; Z88.8 Allergy status to other drugs, medicaments and biological substances; Z79.899 Other long term (current) drug therapy
CPT/HCPCS: 36415; 70450; 71045; 80053; 81001; 84484; 85025; 96374

== ENCOUNTER 2025-03-06 10:17 | Outpatient (CLI) | payer MEDICARE, MEDICAID ==
[~2025-03-06 10:17] MED LIST changes: +NITR-87 PO
[2025-03-06] MEDS ORDERED: READI-CAT 2 (BARIUM SULF)(VANILLA SMOOTHIE) 450ML ONE (10:26)
--- NOTE | 2025-03-06 18:32 | DVH ---
Exam: CT CT AB PEL WITH ORAL CON ONLY History: ABD PAIN Comparison Study: CT CT AB PEL WO CON-NO ORAL OR IV on DOS: 11/13/23, CT CT AB PEL WITH ORAL CON ONLY on DOS: 01/29/23, CT AB PEL WITH ORAL CON ONLY on DOS: 11/08/22 Technique: Multidetector spiral CT of the abdomen and pelvis was performed from lung bases to pubic symphysis. Imaging was performed without IV contrast. Axial, coronal and sagittal multiplanar reform ats were obtained from the axial data set by the technologist. Radiation dose : Abdomen/Pelvis: CTDIvol 12.86 mGy, DLP 662.16 mGy*cm. Findings: Evaluation of solid organs is limited due to lack of intravenous contrast use. Lung Bases: Atelectasis and scarring in the lung bases. Liver: Calcified granuloma. Few hepatic cysts. Gallbladder and biliary Tree: Unremarkable Spleen: Unremarkable Pancreas: The pancreas is grossly normal in appearance. Adrenal Glands: Unremarkable Kidneys: Bilateral renal cysts. No hydronephrosis or nephrolithiasis. Bladder: Grossly unremarkable for degree of distention. Bowel: The stomach is grossly normal in appearance. Small bowel and colon are normal in caliber and d istribution. Normal appendix is visualized in the right lower quadrant without findings of appendicit is. Sigmoid diverticulosis. Ascites: Absent Lymphadenopathy: No mesenteric, retroperitoneal or periportal lymphadenopathy. Abdominal wall and Mesentery: Unremarkable. Vasculature: Calcified atherosclerotic disease. Pelvic Organs: Unremarkable Musculoskeletal: Grade 1 anterolisthesis of L4 on L5. Multilevel degenerative disease. IMPRESSION: 1. No acute abdominal or pelvic findings. Few hepatic cysts. Bilateral renal cysts. Sigmoid diverticu losis. Radiation optimization: All CT scans at this facility use at least one of these dose optimization sheldon hniques: Automated exposure control mA and/or kV adjustment per patient size (includes targeted exams where dose is matched to clinical indication) or iterative reconstruction. HS:Y
== END 2025-03-06 17:00 | disposition home or self-care (01) ==
LOC: Rad HDHVI 10:17
PROVIDERS: ATTEND Internal Medicine Cardiovascular Disease
DX: N28.1 Cyst of kidney, acquired (principal); K57.30 Diverticulosis of large intestine without perforation or abscess without bleeding; K76.89 Other specified diseases of liver; K75.3 Granulomatous hepatitis, not elsewhere classified; M51.369 Other intervertebral disc degeneration, lumbar region without mention of lumbar back pain or lower extremity pain; M43.16 Spondylolisthesis, lumbar region; R10.9 Unspecified abdominal pain; J98.11 Atelectasis; J98.4 Other disorders of lung; I70.90 Unspecified atherosclerosis
CPT/HCPCS: 74176

== ENCOUNTER 2025-04-17 10:51 | Outpatient (CLI) | payer MEDICARE, MEDICAID | END 2025-04-17 17:00 | disposition home or self-care (01) | LOC: Rad HDHVI 10:51 | PROVIDERS: ATTEND Internal Medicine Cardiovascular Disease | DX: I35.1 Nonrheumatic aortic (valve) insufficiency (principal); I50.33 Acute on chronic diastolic (congestive) heart failure | CPT/HCPCS: 93306 ==